=== PATIENT | male | born 1940 | race Caucasian/White ===

== ENCOUNTER 2020-09-23 12:31 | Inpatient (IN) | payer MEDICARE, BC ==
[~2020-09-23] VITALS: Ht 188 cm; Wt 69.4 kg
[2020-09-23] VITALS (13 sets, daily range): BP systolic 91–126; BP diastolic 48–74; BMI 21.8
[2020-09-23] MEDS ORDERED: OMEPRAZOLE20 M1 PO (13:29)
[2020-09-23] MEDS ORDERED: LISINOPRIL2.5 MG PO (13:29)
[2020-09-23] MEDS ORDERED: PROSCAR5 MG PO (13:30)
[2020-09-23] MEDS ORDERED: CELEXA10 MG PO (13:30)
[2020-09-23 13:44] LABS: BASOPHILS 0.3 % (0-2); EOSINOPHILS 0.3 % (0-7); HEMATOCRIT 51.7 % (42.0-54.0); HEMOGLOBIN 17.8 g/dL (13.5-17.5); IMMATURE GRANULOCYTES 0.2 % (0-5); LYMPHOCYTE ABS# 0.96 10x3/uL (1.32-3.57); LYMPHOCYTES 9.9 % (15-50); MCH 31.7 pg (26.0-34.0); MCHC 34.4 g/dL (31.0-37.0); MEAN PLATELET VOLUME 9.5 fL (7.4-10.4); MONOCYTES 8.5 % (2-11); NEUTROPHIL ABS# 7.85 10x3/uL (1.78-5.38); NEUTROPHILS 80.8 % (40-80); PLATELET COUNT 159 10x3/uL (130-400); RBC 5.62 10x6/uL (4.20-6.10); RDW 13.8 % (11.5-14.5); WBC 9.7 10x3/uL (4.8-10.8)
[2020-09-23 13:58] LABS: CALC OSMOLALITY 271 mosm/kg (275-300); CALCIUM 9.6 mg/dL (8.5-10.1); CARBON DIOXIDE 22.1 mmol/L (21.0-32.0); CHLORIDE - SERUM 98 mmol/L (98-107); GLUCOSE 133 mg/dL (74-106); POTASSIUM - SERUM 4.4 mmol/L (3.5-5.1); SODIUM 135 mmol/L (136-145); UREA NITROGEN 12 mg/dL (7-18); eGFR NON AFRICAN AMERICAN 76 mL/min (90-120)
--- NOTE | 2020-09-23 14:03 | NUR ---
PT TO CT WILL STATR MEDS UPON RETURN
--- NOTE | 2020-09-23 14:13 | NUR ---
PT RETURNED FROM CT AND FIXING TO GIVE MEDS PER MAR
[2020-09-23 14:14] LABS: APTT 30.8 SECONDS (22.8-39.4); INR 1.14 (0.85-1.17); PROTIME 13.6 SECONDS (11.6-15.0)
[2020-09-23 14:15] LABS: ALBUMIN 3.7 g/dL (3.4-5.0); ALKALINE PHOSPHATASE 103 U/L (30-120); ALT (SGPT) 24 U/L (10-68); BILIRUBIN - TOTAL 0.91 mg/dL (0.2-1.3); CKMB 0.5 U/L (0.0-3.6); CREATINE KINASE 64 UL (21-232); D-DIMER-QUANTITATIVE 1.41 ug/mLFEU (0.20-0.54); MAGNESIUM - SERUM 1.9 mg/dL (1.8-2.4); PROTEIN - SERUM 7.8 g/dL (6.4-8.2)
[2020-09-23 14:16] LABS: TROPONIN-I < 0.017 ng/mL (0.000-0.060)
[2020-09-23 19:50] LABS: CKMB 1.1 U/L (0.0-3.6); CREATINE KINASE 47 UL (21-232)
[2020-09-23 19:59] LABS: TROPONIN-I < 0.017 ng/mL (0.000-0.060)
--- NOTE | 2020-09-23 19:59 | NUR ---
SERIAL EKG DONE ORDERED. HR DECREASED TO 58-60 PRIOR TO. WEANED CARDIZEM TO OFF WHILE IN ROOM FROM 10 TO 5 TO 2 TO OFF HR REMAINS 60. PT STATES FEELS BETTER. WILL CONT TO MONITOR.
--- NOTE | 2020-09-23 22:57 | NUR ---
PT REMAINS SR 58-60 SINCE TURNING OFF CARDIZEM. PT DENIES C/O. RESTING QUIETLY.
[2020-09-24] VITALS (16 sets, daily range): BP systolic 88–100; BP diastolic 48–57; Ht 188 cm; Wt 69.4 kg
[2020-09-24 02:24] LABS: CKMB 0.6 U/L (0.0-3.6); CREATINE KINASE 58 UL (21-232)
[2020-09-24 02:29] LABS: TROPONIN-I < 0.017 ng/mL (0.000-0.060)
[2020-09-24 07:52] LABS: BASOPHILS 0.2 % (0-2); EOSINOPHILS 0.5 % (0-7); HEMATOCRIT 43.7 % (42.0-54.0); HEMOGLOBIN 14.5 g/dL (13.5-17.5); IMMATURE GRANULOCYTES 0.2 % (0-5); LYMPHOCYTE ABS# 1.06 10x3/uL (1.32-3.57); LYMPHOCYTES 18.4 % (15-50); MCH 31.4 pg (26.0-34.0); MCHC 33.2 g/dL (31.0-37.0); MEAN PLATELET VOLUME 9.2 fL (7.4-10.4); MONOCYTES 12.7 % (2-11); NEUTROPHIL ABS# 3.92 10x3/uL (1.78-5.38); PLATELET COUNT 138 10x3/uL (130-400); RBC 4.62 10x6/uL (4.20-6.10); RDW 14.4 % (11.5-14.5)
[2020-09-24 07:58] LABS: MCV 94.6 fL (80.0-100.0); WBC 5.8 10x3/uL (4.8-10.8)
[2020-09-24 08:07] LABS: INR 1.28 (0.85-1.17); PROTIME 14.8 SECONDS (11.6-15.0)
[2020-09-24 08:33] LABS: ALKALINE PHOSPHATASE 74 U/L (30-120); CALC OSMOLALITY 270 mosm/kg (275-300); CALCIUM 8.1 mg/dL (8.5-10.1); CARBON DIOXIDE 27.1 mmol/L (21.0-32.0); CHLORIDE - SERUM 104 mmol/L (98-107); CKMB 0.6 U/L (0.0-3.6); CREATINE KINASE 64 UL (21-232); GLUCOSE 103 mg/dL (74-106); MAGNESIUM - SERUM 1.7 mg/dL (1.8-2.4); PHOSPHOROUS 2.6 mg/dL (2.5-4.9); POTASSIUM - SERUM 3.9 mmol/L (3.5-5.1); PROTEIN - SERUM 5.9 g/dL (6.4-8.2); SODIUM 136 mmol/L (136-145); TROPONIN-I < 0.017 ng/mL (0.000-0.060); UREA NITROGEN 10 mg/dL (7-18); eGFR NON AFRICAN AMERICAN 76 mL/min (90-120)
[2020-09-24 08:34] LABS: ALBUMIN 2.7 g/dL (3.4-5.0); ALT (SGPT) 17 U/L (10-68)
--- NOTE | 2020-09-24 18:11 | NUR ---
RECEIVED PATIENT FROM ICU, PATIENT IS ALERT AND ORIENTED. PLAN OF CARE REVIEWED AND ASSESSMENT HAS BEEN COMPLETED. PATIENT AMBULATES WELL FROM THE CHAIR TO BED. PATIENT URINATES SOON HE ARRIVES. IN ROOM. NO NEEDS. CALL LIGHT IN REACH
--- NOTE | 2020-09-24 19:00 | NUR ---
pt sitting up in bed, awake alert, NIKOLSKI friend/family at bedside. pt reports gas/belching and indigestion. no other issues reported at this time. no acute distress. will contnue to monitor
--- NOTE | 2020-09-24 19:30 | NUR ---
new order received for carafate and mylanta X1, order to change zofran to q 4 hr prn.
[2020-09-25 01:35] VITALS: BP 103/52
[2020-09-25 05:57] VITALS: BP 107/56
[2020-09-25 06:13] LABS: BASOPHILS 0.2 % (0-2); EOSINOPHILS 3.3 % (0-7); HEMATOCRIT 41.3 % (42.0-54.0); HEMOGLOBIN 13.6 g/dL (13.5-17.5); IMMATURE GRANULOCYTES 0.2 % (0-5); LYMPHOCYTE ABS# 1.06 10x3/uL (1.32-3.57); LYMPHOCYTES 21.5 % (15-50); MCH 31.3 pg (26.0-34.0); MCHC 32.9 g/dL (31.0-37.0); MCV 94.9 fL (80.0-100.0); MEAN PLATELET VOLUME 9.3 fL (7.4-10.4); MONOCYTES 8.1 % (2-11); NEUTROPHIL ABS# 3.28 10x3/uL (1.78-5.38); NEUTROPHILS 66.7 % (40-80); PLATELET COUNT 119 10x3/uL (130-400); RBC 4.35 10x6/uL (4.20-6.10); RDW 14.2 % (11.5-14.5); WBC 4.9 10x3/uL (4.8-10.8)
[2020-09-25 06:26] LABS: INR 1.23 (0.85-1.17); PROTIME 14.4 SECONDS (11.6-15.0)
[2020-09-25 06:27] LABS: APTT 32.5 SECONDS (22.8-39.4)
[2020-09-25 06:31] LABS: ALBUMIN 2.6 g/dL (3.4-5.0); ALKALINE PHOSPHATASE 71 U/L (30-120); ALT (SGPT) 20 U/L (10-68); BILIRUBIN - TOTAL 0.79 mg/dL (0.2-1.3); CALC OSMOLALITY 273 mosm/kg (275-300); CALCIUM 8.6 mg/dL (8.5-10.1); CARBON DIOXIDE 26.6 mmol/L (21.0-32.0); CHLORIDE - SERUM 105 mmol/L (98-107); GLUCOSE 91 mg/dL (74-106); MAGNESIUM - SERUM 1.7 mg/dL (1.8-2.4); POTASSIUM - SERUM 3.9 mmol/L (3.5-5.1); PROTEIN - SERUM 5.7 g/dL (6.4-8.2); SODIUM 137 mmol/L (136-145); UREA NITROGEN 12 mg/dL (7-18); eGFR NON AFRICAN AMERICAN 76 mL/min (90-120)
[2020-09-25 06:32] LABS: PHOSPHOROUS 1.9 mg/dL (2.5-4.9)
--- NOTE | 2020-09-25 07:00 | NUR ---
PT LYING IN BED WITH EYES CLOSED. RAISES TO TACTILE STIMULI. PT [place]. RESP EVEN AND UNLABORED. AAOX4. DENIES NEEDS AT THIS TIME. ASSESSMENT COMPLETED. CLIR. BED IN LOWEST POSITION. SIDE RAILS X2. FAMILY MEMBER AT BEDSIDE
[2020-09-25 08:00] VITALS: BP 115/53
--- NOTE | 2020-09-25 12:01 | NUR ---
I have reviewed this patient and I concur with the Shift Assessment completed by the Licensed Practical Nurse today this shift.
--- NOTE | 2020-09-25 12:14 | CN ---
PATIENT NAME:EMMY PENNINGTON MEDICAL RECORD: [id number] : 36 [facility] AD[facility] DATE: 09/23/20 ACCOUNT: [id number] CONSULTING PHYSICIAN: CHRISTA AGUSTIN MD REFERRING PHYSICIAN: CHRISTA PETERSEN MD DATE OF CONSULTATION: 09/24/2020 HISTORY OF PRESENT ILLNESS: An 80-year-old gentleman, actually fairly healthy by all reports, is able to mow his own yard, admitted to CV/ICU with atrial fibrillation and RVR, increased lactic acid, found to have possible multilobar pneumonitis on chest x-ray, negative for PE. Does drink fairly heavily on a regular basis. Currently, reverted to sinus rhythm. We are asked to see him concerning his cardiovascular status. PAST MEDICAL HISTORY: Includes; 1. History of hypertension. 2. Hyperlipidemia. 3. Gastroesophageal reflux disease. MEDICATIONS: Typically include lisinopril 2.5 every day, Celexa 10 every day, omeprazole 20 mg p.o. every day, Proscar 5 mg p.o. every day. ALLERGIES: CODEINE. SOCIAL HISTORY: Nonsmoker, at least moderate drinker, although probably more than his reports. Easily able to take care of all his ADLs including outdoor work. REVIEW OF SYSTEMS: The patient reports easy bruising but reports no swollen glands. The patient reports no fever, no night sweats, no significant weight gain, no significant weight loss. No significant exercise tolerance. The patient reports no dry eyes, no irritation, no vision change. Patient reports no difficulty hearing and no ear pain. Patient reports no frequent nose bleeds or nose and sinus problems. Patient reports on arm pain on exertion. No shortness of breath while lying down. No history of heart murmur. Patient reports no cough, no wheezing or coughing up blood. Patient reports no abdominal pain, no vomiting. Normal appetite. No diarrhea and not vomiting blood. No nausea and no constipation. Patient reports no incontinence. No difficulty urinating. No hematuria. No increased frequency. Patient reports no muscle aches. No weakness, no arthralgias, no back pain. No swelling of the extremities. Patient reports no abnormal mole, no jaundice, no rashes. Reports no loss of consciousness. No weakness and no numbness. No seizures, dizziness, or headaches. The patient reports no depression, no sleep disturbance, feeling safe in a relationship and no alcohol abuse. Patient reports on fatigue. Reports no runny nose or sinus pressure. No itching, no hives, and no frequent sneezing. PHYSICAL EXAMINATION: GENERAL: Pleasant, no acute distress, appears stated age. VITAL SIGNS: Blood pressure 92/48, pulse 55 and regular. HEENT: Normocephalic, atraumatic. NECK: No bruits noted. HEART: Regular, II/ systolic ejection murmur. I do not hear a gallop. LUNGS: Good air excursion. ABDOMEN: Soft, nontender. CONSULT REPORT [id number] EMMY PENNINGTON EXTREMITIES: Pulses 2+ and equal. No edema. NEUROLOGIC: Grossly intact. DIAGNOSTIC DATA: EKG currently shows normal sinus rhythm. IMPRESSION AND PLAN: Atrial fibrillation, suspect combination of both heart and respiratory issues. He is in sinus rhythm currently. Pressures run in the 100-90 range. We will try something such as amiodarone, which should have no negative effect on the blood pressure at this point. Check echocardiography study for structural integrity of the left ventricular. Further recommendations based on clinical course. Thank you for the consultation. TRANSINT:[id number] Voice Confirmation ID: [id number] DOCUMENT ID: [id number] CHRISTA AGUSTIN MD at 1214 CC: [id number] DICTATION DATE: 09/24/20 1251 CLEANER TOUCH UP WORKER: 09/24/[address] [facility] [address] [place] [address]
--- NOTE | 2020-09-25 12:15 | EC ---
PATIENT:EMMY PENNINGTON DATE OF SERVICE: 09/23/20 SEX: M MEDICAL RECORD: [id number] DATE OF : 38 LOCATION:D.M2 D.210 AGE OF PATIENT: 80 ADMISSION DATE: 09/23/20 REFERRING PHYSICIAN: INTERPRETING PHYSICIAN: CHRISTA AGUSTIN MD ECHOCARDIOGRAM REPORT ECHO CHARGES 4 ECHO COMPLETE Date: 09/24/20 CLINICAL DIAGNOSIS: AFIB ECHOCARDIOGRAPHIC MEASUREMENTS (adult normal given) AC root (d.<3.7cm) 4.3 cm LV Septum d (<1.2 cm> 0.7 cm Valve Excursion 1.6 cm LV Septum (systole) 1.2 cm Left Atria (s.<4.0cm> 3.4 cm LVPW d(<1.2cm) 0.7 cm RV (d.<2.3cm) 2.8 cm LVPW (sytole) 1.1 cm LV diastole(<5.6CM) 5.5 cm MV E-F(>70mm/sec) cm LV systole 4.1 cm LVOT Diameter 2.1 cm MV exc.(>10mm) 1.8 cm Est.ejection fraction (50-75%) % DOPPLER: LVIT cm/sec A 58 cm/sec E 72 cm/sec LA cm/sec RVSP 32 mmHg LVOT 92 cm/sec AOP1/2T m/s Asc. Ao 112 cm/sec RVOT 48 cm/sec RA cm/sec PA 68 cm/sec AV Gradient Peak 5.0 mmHg AV Mean 3.0 mmHg AV Area 3.1 cm MV Gradient Peak 2.4 mmHg MV Mean 1.2 mmHg MV Area cm COMMENTS: Seismic Prospecting Observer: Ronda NUNN Endodontic Assistant: 3 Dr. Esquivel TAPE# Pericardial Effusion N DATE OF SERVICE: 09/23/2020 Adequate 2D, color flow imaging, spectral Doppler, and M-Mode. No LVH. LV internal dimensions are normal. Wall motion normal. EF greater than or equal to 55%. Aortic valve is tricuspid with good valve excursion. Mild AI. Left atrium is normal. Mitral valve shows no prolapse. Mild MR. Right-sided chambers are grossly normal. Trace TR. TRANSINT:[id number] Voice Confirmation ID: [id number] DOCUMENT ID: [id number] ECHOCARDIOGRAM REPORT [id number] EMMY PENNINGTON CHRISTA AGUSTIN MD at 1215 CC: [id number] DICTATION DATE: 09/24/20 1503 WILDLIFE CONSERVATION PROFESSOR: 09/24/20 2251 ADM IN [facility] [id number] [place] [address]
[2020-09-25 12:19] VITALS: BP 117/57
[2020-09-25 16:07] VITALS: BP 100/60
--- NOTE | 2020-09-25 19:13 | NUR ---
READ THROUGH NURSING ORDERS. PATIENT IS TO REMAIN ON TELEMETRY. NOTIFIED LENS ASSORTER. LENS ASSORTER IS LOOKING INTO IT.
--- NOTE | 2020-09-25 19:15 | NUR ---
RECEIVED BEDSIDE REPORT. PATIENT IS ALERT AND ORIENTED, RESTING COMFORTABLY IN BED. RESPIRATIONS ARE EVEN AND UNLABORED. NO S/S OF DISTRESS. NO C/O PAIN. NEEDS MET. CALL LIGHT WITHIN REACH. AT BEDSIDE.
[2020-09-25 20:21] VITALS: BP 117/60
[2020-09-26 01:37] VITALS: BP 132/93
[2020-09-26 04:49] VITALS: BP 108/64
[2020-09-26 05:51] LABS: BASOPHILS 0.4 % (0-2); EOSINOPHILS 5.5 % (0-7); HEMATOCRIT 41.9 % (42.0-54.0); HEMOGLOBIN 14.1 g/dL (13.5-17.5); LYMPHOCYTE ABS# 1.09 10x3/uL (1.32-3.57); LYMPHOCYTES 20.7 % (15-50); MCH 31.9 pg (26.0-34.0); MCHC 33.7 g/dL (31.0-37.0); MCV 94.8 fL (80.0-100.0); MEAN PLATELET VOLUME 9.9 fL (7.4-10.4); MONOCYTES 7.4 % (2-11); NEUTROPHIL ABS# 3.48 10x3/uL (1.78-5.38); PLATELET COUNT 121 10x3/uL (130-400); RBC 4.42 10x6/uL (4.20-6.10); RDW 14.2 % (11.5-14.5); WBC 5.3 10x3/uL (4.8-10.8)
[2020-09-26 06:08] LABS: APTT 32.7 SECONDS (22.8-39.4); INR 1.23 (0.85-1.17); PROTIME 14.3 SECONDS (11.6-15.0)
[2020-09-26 06:17] LABS: ALBUMIN 2.7 g/dL (3.4-5.0); ALKALINE PHOSPHATASE 73 U/L (30-120); ALT (SGPT) 21 U/L (10-68); BILIRUBIN - TOTAL 0.63 mg/dL (0.2-1.3); CALC OSMOLALITY 275 mosm/kg (275-300); CALCIUM 8.5 mg/dL (8.5-10.1); CARBON DIOXIDE 27.3 mmol/L (21.0-32.0); CHLORIDE - SERUM 105 mmol/L (98-107); CREATININE - SERUM 0.9 mg/dL (0.6-1.3); GLUCOSE 87 mg/dL (74-106); MAGNESIUM - SERUM 1.7 mg/dL (1.8-2.4); POTASSIUM - SERUM 3.5 mmol/L (3.5-5.1); PROTEIN - SERUM 5.7 g/dL (6.4-8.2); SODIUM 139 mmol/L (136-145); UREA NITROGEN 10 mg/dL (7-18); eGFR NON AFRICAN AMERICAN 86 mL/min (90-120)
[2020-09-26 08:00] VITALS: BP 114/58
--- NOTE | 2020-09-26 10:49 | NUR ---
Nutrition Reassessment/Follow-up: Eating well and drinking Ensure; observed majority of breakfast eaten this AM. Diet: Cardiac, Ensure TID No new wt; last wt: 153# (09/24) Last BM: 09/25 Labs noted: Mg 1.7 Meds noted: Protonix, MVI, NS @ 75, electrolyte protocol Nutrition Goals: -PO intake >=75% avg meal intake. -Stable wt. Nutrition Intervention: -Nutrition needs unchanged since initial assessment; no new wt available. -Need new wt. -RD will follow up within 7 days if pt still admitted.
[2020-09-26] MEDS ORDERED: AMIODARONE HCL200 MG PO (10:51)
[2020-09-26] MEDS ORDERED: MULTI-DAY VITAM1 TAB PO (10:52)
[2020-09-26] MEDS ORDERED: MUCINEX600 MG PO (10:52)
[2020-09-26] MEDS ORDERED: TESSALON PERLE100 MG PO (10:52)
[2020-09-26] MEDS ORDERED: VIBRAMYCIN 100100 MG PO (10:53)
[2020-09-26] MEDS ORDERED: OMNICEF300 MG PO (10:53)
[2020-09-26] MEDS ORDERED: LIBRIUM25 MG PO (10:53)
--- NOTE | 2020-09-26 13:30 | NUR ---
NURSE REVIEWS DC INSTRUCTIONS WITH PATIENT AND HIS SIGNIFICANT OTHER AT THIS TIME. PATIENT DENIES QUESTIONS OR CONCERNS. NURSE TO CALL IN PRESCRIPTIONS TO A DIFFERENT PHARMACY IN [facility].
--- NOTE | 2020-09-26 13:35 | NUR ---
NURSE CALLS IN PATIENT'S PRESCRIPTIONS TO [facility] IN [facility]
--- NOTE | 2020-09-26 13:43 | NUR ---
PATIENT BEING WHEELED OUT AT THIS TIME. PATIENT HAS BELONGINGS IN HAND. NAD NOTED.
--- NOTE | 2020-09-26 15:58 | MORECARE ---
CASE MANAGEMENT DISCHARGE SUMMARY PATIENT: EMMY PENNINGTON UNIT: [id number] ADM DATE: 09/23/20 AGE: 80 : 38 SEX: M ROOM/BED: D.2107 AUTHOR: IRMA,DOC PHYSICIAN: REFERRING PHYSICIAN: CHRISTA PETERSEN MD DATE OF SERVICE: 09/26/20 Case Management Discharge Planning Summary DCP REVIEW SUMMARY ANTICIPATED D/C DATE: 09/26/2020 EXPECTED LOS : 3 CASE STATUS: DCP Initiated INITIAL REVIEW: 09/23/2020 INITIAL REVIEWER: Avril Tatum FINAL DISCHARGE DISPOSITION: : FINAL REVIEWER: FINAL REVIEW DATE: DCP Focus Questions & Answers QUESTION: ANSWER : PATIENT: EMMY PENNINGTON ENCOUNTER: [id number] MEDICAL RECORD#: [id number] ADMISSION DATE: 09/23/2020 DISCHARGE DATE: 09/26/2020 ATTENDING MD: : AGE: 80 MARITAL STATUS: M DC PLAN ID: [id number] FACILITY: [facility] PRINTED ON: 09/26/20 15:58 CT All edits/amendments must be made on the electronic document DICTATION DATE: 09/26/201557 REVIEW CONSULTANT: DM 09/26/20 1558 RPT#: [id number] DC DATE:09/26/20 STATUS: DIS IN [facility] [address] [place] [address] END OF REPORT
--- NOTE | 2020-09-26 16:12 | MORECARE ---
CASE MANAGEMENT DISCHARGE SUMMARY PATIENT: EMMY PENNINGTON UNIT: [id number] ADM DATE: 09/23/20 AGE: 80 : 38 SEX: M ROOM/BED: D.2107 AUTHOR: IRMA,DOC PHYSICIAN: REFERRING PHYSICIAN: CHRISTA PETERSEN MD DATE OF SERVICE: 09/26/20 Case Management Discharge Planning Summary COMMENTS ENTERED DATE: 09/26/20 16:03 CT COMMENT TYPE: Discharge Planning REVIEWER: Avril Tatum CM MET WITH PATIENT AND SIGNIFICANT OTHER KEATON KLEIN [phone], OBTAINED CONSENT FROM PATIENT TO DISCUSS DISCHARGE. PATIENT STATES THAT HE LIVES INDEPENDENTLY AY HOME WITH ROOM MATE. STATES THAT THE HOME ENVIRONMENT IS SAFE WITH RUNNING WATER, ELECTRICITY, AND GAS. TRANSPORTATION HOME WILL BE PROVIDED BY SO, BUT OTHERWISE PT DRIVES SELF TO ALL APPOINTMENTS. PT STATES HE WILL NOT DRIVE FOR A FEW DAYS, BUT CAN OBTAIN MEDCIATIONS OR OTHER NEEDS VIA HIS ROOM MATTE, SO, OR CHILDREN. PT USSES [facility] AND HIS PCP IS ROSENDA DE LA ROSA. PT DENIES NEED FOR ADDITIONAL SERVICES FROM HOME HEALTH, REHAB, OR DME. PT SIGNED DAVID REFUSAL AND IMM SERVED AND COPY SIGNED AND PLACED IN CHART. PT VERBALIZED UNDERSTANDING AND IS READY TO DISCHARGE TODAY. DCP REVIEW SUMMARY ANTICIPATED D/C DATE: 09/26/2020 EXPECTED LOS : 3 CASE STATUS: DCP Initiated INITIAL REVIEW: 09/23/2020 INITIAL REVIEWER: Avril Tatum FINAL DISCHARGE DISPOSITION: : FINAL REVIEWER: FINAL REVIEW DATE: DCP Focus Questions & Answers DCP Screen QUESTION: ANSWER High Risk Factors: : None Walking limitation: Patient stated self rated walking limitation present? : No Age: : 78 + Prior living environment: : Lives with others Disability ranking: : Grade 1: No significant disability DCP Evaluation QUESTION: ANSWER Patient and/or caregiver agree upon recommended discharge plan? : Yes Family / Caregiver's ability to cope with chronic illness: : a. Adequate (ability to meet patient's medical needs, ensures patient attends medical appts.) Patient's current cognitive status: : *Oriented to person, place, situation, time and present Patient's ability to cope with chronic illness : d. No chronic illness Patient gives permission to discuss discharge plans with: (name, relationship and number) : KEATON ERNIE ([place]) [phone] Does the patient have the ability to pay for or attain post discharge needs / services? : N/A Functional screen assessment: : No issues identified Family / Caregiver's ability to cope with chronic illness: : a. Adequate (ability to meet patient's medical needs, ensures patient attends medical appts.) Physical Status: : Independent with ADL's Equipment needed for post hospitalization: : None Is there a likelihood that the patient will require additional services to return to the preadmission environment? : N/A Living Arrangements: : Home with others Results of this evaluation have been discussed with: : Patient Patient with capacity for self-care or can be cared for in same environment as prior to hospitalization? : Yes Baseline cognitive status: : *Oriented to person, place, situation, time and present Physical environment modification needed / anticipated for discharge: : No Medication Management: : Patient states they do have transportation to picker feeder medications Medication Management: : Patient states can afford medications Planned post hospital services available for patient? : N/A Pharmacy name(s): : [facility] IN [place] Planned post hospital services covered by insurance plan? : N/A Does Patient have transportation to get home and to follow-up medical appointments when discharged from the hospital? : Yes Would patient like to participate in any Care Coordination programs (if applicable): : Not applicable Does the patient have electricity at home? : Yes Does the patient have running water in their house? : Yes Equipment in use: : None Mental health screen: : No mental health history Psychosocial status: : Independent adult (65+) Abuse/Neglect: : None Resources / Services in place: : None DCP Re-evaluation QUESTION: ANSWER Would patient like to participate in any Care Coordination programs (if applicable): : Not applicable PATIENT: EMMY PENNINGTON ENCOUNTER: [id number] MEDICAL RECORD#: [id number] ADMISSION DATE: 09/23/2020 DISCHARGE DATE: 09/26/2020 ATTENDING MD: DWIGHT: AGE: 80 MARITAL STATUS: M DC PLAN ID: [id number] FACILITY: [facility] PRINTED ON: 09/26/20 16:12 CT All edits/amendments must be made on the electronic document DICTATION DATE: 09/26/201611 LIDAR ANALYST: RAMIN 09/26/201611 RPT#: [id number] DC DATE:09/26/20 STATUS: DIS IN [facility] [address] [place] [address] END OF REPORT
--- NOTE | 2020-09-29 17:28 | MORECARE ---
CASE MANAGEMENT DISCHARGE SUMMARY PATIENT: EMMY PENNINGTON UNIT: [id number] ADM DATE: 09/23/20 AGE: 80 : 38 SEX: M ROOM/BED: D.2107 AUTHOR: IRMA,DOC PHYSICIAN: REFERRING PHYSICIAN: CHRISTA PETERSEN MD DATE OF SERVICE: 09/29/20 Case Management Discharge Planning Summary COMMENTS ENTERED DATE: 09/26/20 16:03 CT COMMENT TYPE: Discharge Planning REVIEWER: Avril Tatum CM MET WITH PATIENT AND SIGNIFICANT OTHER KEATON KLEIN [phone], OBTAINED CONSENT FROM PATIENT TO DISCUSS DISCHARGE. PATIENT STATES THAT HE LIVES INDEPENDENTLY AY HOME WITH ROOM MATE. STATES THAT THE HOME ENVIRONMENT IS SAFE WITH RUNNING WATER, ELECTRICITY, AND GAS. TRANSPORTATION HOME WILL BE PROVIDED BY SO, BUT OTHERWISE PT DRIVES SELF TO ALL APPOINTMENTS. PT STATES HE WILL NOT DRIVE FOR A FEW DAYS, BUT CAN OBTAIN MEDCIATIONS OR OTHER NEEDS VIA HIS ROOM MATTE, SO, OR CHILDREN. PT [facility] AND HIS PCP IS ROSENDA DE LA ROSA. PT DENIES NEED FOR ADDITIONAL SERVICES FROM HOME HEALTH, REHAB, OR DME. PT SIGNED DAVID REFUSAL AND IMM SERVED AND COPY SIGNED AND PLACED IN CHART. PT VERBALIZED UNDERSTANDING AND IS READY TO DISCHARGE TODAY. DCP REVIEW SUMMARY ANTICIPATED D/C DATE: 09/26/2020 EXPECTED LOS : 3 CASE STATUS: DCP Initiated INITIAL REVIEW: 09/23/2020 INITIAL REVIEWER: Avril Tatum FINAL DISCHARGE DISPOSITION: : FINAL REVIEWER: FINAL REVIEW DATE: DCP Focus Questions & Answers DCP Screen QUESTION: ANSWER High Risk Factors: : None Walking limitation: Patient stated self rated walking limitation present? : No Age: : 78 + Prior living environment: : Lives with others Disability ranking: : Grade 1: No significant disability DCP Evaluation QUESTION: ANSWER Patient gives permission to discuss discharge plans with: (name, relationship and number) : KEATON KLEIN ([place]) [phone] Patient's ability to cope with chronic illness : d. No chronic illness Patient's current cognitive status: : *Oriented to person, place, situation, time and present Family / Caregiver's ability to cope with chronic illness: : a. Adequate (ability to meet patient's medical needs, ensures patient attends medical appts.) Patient and/or caregiver agree upon recommended discharge plan? : Yes Physical Status: : Independent with ADL's Family / Caregiver's ability to cope with chronic illness: : a. Adequate (ability to meet patient's medical needs, ensures patient attends medical appts.) Functional screen assessment: : No issues identified Does the patient have the ability to pay for or attain post discharge needs / services? : N/A Living Arrangements: : Home with others Is there a likelihood that the patient will require additional services to return to the preadmission environment? : N/A Equipment needed for post hospitalization: : None Baseline cognitive status: : *Oriented to person, place, situation, time and present Patient with capacity for self-care or can be cared for in same environment as prior to hospitalization? : Yes Results of this evaluation have been discussed with: : Patient Physical environment modification needed / anticipated for discharge: : No Medication Management: : Patient states can afford medications Medication Management: : Patient states they do have transportation to pickle maker medications Pharmacy name(s): : [facility] IN [place] Planned post hospital services available for patient? : N/A Does Patient have transportation to get home and to follow-up medical appointments when discharged from the hospital? : Yes Planned post hospital services covered by insurance plan? : N/A Would patient like to participate in any Care Coordination programs (if applicable): : Not applicable Does the patient have electricity at home? : Yes Does the patient have running water in their house? : Yes Equipment in use: : None Mental health screen: : No mental health history Psychosocial status: : Independent adult (65+) Abuse/Neglect: : None Resources / Services in place: : None DCP Re-evaluation QUESTION: ANSWER Would patient like to participate in any Care Coordination programs (if applicable): : Not applicable PATIENT: EMMY PENNINGTON ENCOUNTER: [id number] MEDICAL RECORD#: [id number] ADMISSION DATE: 09/23/2020 DISCHARGE DATE: 09/26/2020 ATTENDING MD: WDIGHT: AGE: 80 MARITAL STATUS: M DC PLAN ID: [id number] FACILITY: [facility] PRINTED ON: 09/29/20 17:28 CT All edits/amendments must be made on the electronic document DICTATION DATE: 09/29/201727 SUPERVISOR WRAPPING ROOM: RAMIN 09/29/201727 RPT#: [id number] DC DATE:09/26/20 STATUS: DIS IN [facility] [address] [place] [address] END OF REPORT
== END 2020-09-26 13:46 | disposition home or self-care (01) | DRG 308 ==
LOC: D.ER 12:31 → D.CVICU 15:47 → D.M2 15:47
PROVIDERS: Family Medicine; ADMIT Family Medicine; ATTEND Family Medicine
DX: I48.91 Unspecified atrial fibrillation (principal); J18.9 Pneumonia, unspecified organism; E87.1 Hypo-osmolality and hyponatremia; H93.13 Tinnitus, bilateral; R73.9 Hyperglycemia, unspecified; Z72.89 Other problems related to lifestyle; I10 Essential (primary) hypertension; K21.9 Gastro-esophageal reflux disease without esophagitis; N40.0 Benign prostatic hyperplasia without lower urinary tract symptoms; E78.5 Hyperlipidemia, unspecified; E83.42 Hypomagnesemia; E88.09 Other disorders of plasma-protein metabolism, not elsewhere classified; I95.9 Hypotension, unspecified

== ENCOUNTER 2020-10-02 10:38 | Inpatient (IN) | payer MEDICARE, BC ==
[~2020-10-02] VITALS: Ht 188 cm; Wt 84.4 kg
[~2020-10-02 10:38] MED LIST: AMIODARONE HCL200 MG PO; CELEXA10 MG PO; LIBRIUM25 MG PO; LISINOPRIL2.5 MG PO; MUCINEX600 MG PO; MULTI-DAY VITAM1 TAB PO; OMEPRAZOLE20 M1 PO; OMNICEF300 MG PO; PROSCAR5 MG PO; TESSALON PERLE100 MG PO; VIBRAMYCIN 100100 MG PO
[2020-10-02 11:14] LABS: BASOPHILS 0.3 % (0-2); EOSINOPHILS 0.3 % (0-7); HEMATOCRIT 50.5 % (42.0-54.0); LYMPHOCYTES 10.3 % (15-50); MCH 31.4 pg (26.0-34.0); MCHC 33.7 g/dL (31.0-37.0); MEAN PLATELET VOLUME 7.2 fL (7.4-10.4); MONOCYTES 12.4 % (2-11); NEUTROPHILS 76.7 % (40-80); RBC 5.43 10x6/uL (4.20-6.10); RDW 14.6 % (11.5-14.5); WBC 8.1 10x3/uL (4.8-10.8)
[2020-10-02 11:28] LABS: APTT 31.7 SECONDS (22.8-39.4); CALC OSMOLALITY 265 mosm/kg (275-300); CALCIUM 9.5 mg/dL (8.5-10.1); CARBON DIOXIDE 25.3 mmol/L (21.0-32.0); CHLORIDE - SERUM 99 mmol/L (98-107); CREATININE - SERUM 1.2 mg/dL (0.6-1.3); GLUCOSE 104 mg/dL (74-106); INR 1.29 (0.85-1.17); POTASSIUM - SERUM 3.9 mmol/L (3.5-5.1); PROTIME 14.9 SECONDS (11.6-15.0); SODIUM 133 mmol/L (136-145); UREA NITROGEN 13 mg/dL (7-18); eGFR NON AFRICAN AMERICAN 61 mL/min (90-120)
[2020-10-02 11:35] LABS: PLATELET COUNT 205 10x3/uL (130-400)
[2020-10-02 11:54] LABS: ALBUMIN 3.6 g/dL (3.4-5.0); ALKALINE PHOSPHATASE 81 U/L (30-120); ALT (SGPT) 35 U/L (10-68); BILIRUBIN - TOTAL 0.85 mg/dL (0.2-1.3); CKMB 0.8 U/L (0.0-3.6); CREATINE KINASE 134 UL (21-232); PROTEIN - SERUM 7.9 g/dL (6.4-8.2); TROPONIN-I < 0.017 ng/mL (0.000-0.060)
[2020-10-02 14:59] VITALS: BP 131/70
[2020-10-02 16:08] VITALS: BP 104/56; BP 124/77
--- NOTE | 2020-10-02 19:00 | NUR ---
PT FROM ER, PT IN BED, AAO X 4, FAMILY AT BEDSIDE, RESP EVEN AND UNLABORED, NO DISTRESS NOTED, CL IN REACH, SR UP X 2.
[2020-10-02 20:35] LABS: BILIRUBIN NEGATIVE (NEGATIVE); KETONE NEGATIVE (NEGATIVE); NITRITE NEGATIVE (NEGATIVE); UROBILINOGEN NORMAL mg/dL (< 2)
[2020-10-02 21:00] VITALS: BP 104/52
[2020-10-03] VITALS: BP 101/59
[2020-10-03 04:00] VITALS: BP 115/58
--- NOTE | 2020-10-03 04:09 | NUR ---
I have reviewed this patient and I concur with the Shift Assessment completed by the Licensed Practical Nurse today this shift.
[2020-10-03 06:27] LABS: APTT 30.1 SECONDS (22.8-39.4); BASOPHILS 0.7 % (0-2); EOSINOPHILS 2.5 % (0-7); HEMATOCRIT 44.7 % (42.0-54.0); HEMOGLOBIN 15.3 g/dL (13.5-17.5); INR 1.27 (0.85-1.17); LYMPHOCYTES 17.1 % (15-50); MCH 31.7 pg (26.0-34.0); MCHC 34.2 g/dL (31.0-37.0); MCV 92.9 fL (80.0-100.0); MEAN PLATELET VOLUME 7.7 fL (7.4-10.4); MONOCYTES 16.2 % (2-11); NEUTROPHILS 63.5 % (40-80); PLATELET COUNT 213 10x3/uL (130-400); PROTIME 14.7 SECONDS (11.6-15.0); RBC 4.81 10x6/uL (4.20-6.10); RDW 14.5 % (11.5-14.5); WBC 6.5 10x3/uL (4.8-10.8)
[2020-10-03 06:44] LABS: ALKALINE PHOSPHATASE 66 U/L (30-120); ALT (SGPT) 34 U/L (10-68); BILIRUBIN - TOTAL 0.51 mg/dL (0.2-1.3); CALC OSMOLALITY 268 mosm/kg (275-300); CALCIUM 9.1 mg/dL (8.5-10.1); CARBON DIOXIDE 25.4 mmol/L (21.0-32.0); CHLORIDE - SERUM 102 mmol/L (98-107); GLUCOSE 83 mg/dL (74-106); MAGNESIUM - SERUM 2.1 mg/dL (1.8-2.4); POTASSIUM - SERUM 4.2 mmol/L (3.5-5.1); PROTEIN - SERUM 6.6 g/dL (6.4-8.2); SODIUM 135 mmol/L (136-145); THYROID STIMULATING HORMONE 4.77 uIU/mL (0.36-3.74); UREA NITROGEN 13 mg/dL (7-18); eGFR NON AFRICAN AMERICAN 76 mL/min (90-120)
[2020-10-03 06:45] LABS: TROPONIN-I < 0.017 ng/mL (0.000-0.060)
--- NOTE | 2020-10-03 07:10 | NUR ---
Sitting up in bed, awake/alert/oriented, T/R self ad mitzi, cont of B/B with use of urinal/bedpan ad mitzi, pericare provided during daily bath and PRN, denies pain/other discomfort at this time, call light/phone/water within reach, no s/s of acute distress observed.
[2020-10-03 08:40] VITALS: BP 102/49
[2020-10-03 11:31] VITALS: BMI 23.9
--- NOTE | 2020-10-03 11:32 | NUR ---
REHAB PRESCREEN RECEIVED. PATIENT HAS NOT RECEIVED HIS PHYSICAL THERAPY OR OCCUPATIONAL THERAPY EVALUATIONS YET. WE WILL LOOK BACK AT THIS CHART LATER TODAY TO SEE IF THEY HAVE BEEN DONE. THANK YOU FOR THIS REFERRAL. NIMESH JACKSON RN CLINICAL LIAISON, INPATIENT REHAB.
[2020-10-03 11:40] VITALS: BP 94/68
[2020-10-03 16:03] VITALS: BP 118/52
--- NOTE | 2020-10-03 19:30 | NUR ---
PT IN BED, AAO X 4, RESP EVEN AND UNLABORED, NO DISTRESS NOTED, CL IN REACH, SR UP X 2.
[2020-10-03 23:18] VITALS: BP 124/68
--- NOTE | 2020-10-04 01:53 | NUR ---
I have reviewed this patient and I concur with the Shift Assessment completed by the Licensed Practical Nurse today this shift.
[2020-10-04 05:18] VITALS: BP 100/58
[2020-10-04 06:09] LABS: BASOPHILS 0.7 % (0-2); EOSINOPHILS 2.2 % (0-7); HEMATOCRIT 44.9 % (42.0-54.0); HEMOGLOBIN 15.4 g/dL (13.5-17.5); LYMPHOCYTES 18.6 % (15-50); MCH 31.7 pg (26.0-34.0); MCHC 34.3 g/dL (31.0-37.0); MCV 92.5 fL (80.0-100.0); MEAN PLATELET VOLUME 7.6 fL (7.4-10.4); MONOCYTES 14.6 % (2-11); NEUTROPHILS 63.9 % (40-80); PLATELET COUNT 230 10x3/uL (130-400); RBC 4.85 10x6/uL (4.20-6.10); RDW 14.2 % (11.5-14.5); WBC 6.4 10x3/uL (4.8-10.8)
[2020-10-04 06:51] LABS: ALBUMIN 3.1 g/dL (3.4-5.0); ALKALINE PHOSPHATASE 66 U/L (30-120); ALT (SGPT) 32 U/L (10-68); BILIRUBIN - TOTAL 0.57 mg/dL (0.2-1.3); CALC OSMOLALITY 263 mosm/kg (275-300); CALCIUM 9.2 mg/dL (8.5-10.1); CARBON DIOXIDE 24.6 mmol/L (21.0-32.0); CHLORIDE - SERUM 98 mmol/L (98-107); GLUCOSE 99 mg/dL (74-106); POTASSIUM - SERUM 3.9 mmol/L (3.5-5.1); PROTEIN - SERUM 6.9 g/dL (6.4-8.2); SODIUM 131 mmol/L (136-145); UREA NITROGEN 15 mg/dL (7-18); eGFR NON AFRICAN AMERICAN 76 mL/min (90-120)
--- NOTE | 2020-10-04 07:30 | NUR ---
Lying in bed, awake/alert/oriented with intermittent confusion, T/R self ad mitzi, cont of B/B with BRPs per self ad mitzi, denies pain/other discomfort at this time, no s/s of acute distress observed.
[2020-10-04 07:49] VITALS: BP 119/63
--- NOTE | 2020-10-04 10:34 | NUR ---
REHAB PRESCREENING Rehab referral received and chart reviewed. Mr. Doty is a good candidate for acute inpatient rehab. I will begin his electronic screen and he can admit to rehab when approvals are in place and his physicians feel he is appropriate for discharge. Thank you for this referral! Mary Alice Cantrell, ASSISTANT INFANT TEACHER Rehab PD
[2020-10-04] MEDS ORDERED: AMIODARONE HCL200 MG PO (10:55)
--- NOTE | 2020-10-04 11:30 | NUR ---
Found on floor between bathroom and bed, pt stated "I didn't fall, I sat down and tried to crawl to get the call button", denies any pain/injury, VS 98.0, 18, 95%, 84, 122/66, Lt elbow with ST, Lt hip red, pt able to move all extremities, treatment for skin tear is to apply bactroban ointment and cover with sm meplex dsg, Dr. Cevallos called to room, examined pt with this nurse then provided orders for xrays, pt awake/alert/oriented and able to move all extremities, placed maru bed alarm on him and reiterqated to him to use the call light and wait for staff to assist before getting up, pt agreed.
--- NOTE | 2020-10-04 11:51 | NUR ---
THANK YOU FOR THIS REFERRAL. ELECTRONIC SCREEN IN PROGRESS. PATIENT IS EAGER TO PARTICIPATE IN ACUTE REHABILITATION. IDT TEAM MEMBERS NOTIFIED IN MORNING MEETING.-LAMONTE MCKEON LPN, CLINICAL LIAISON
[2020-10-04 12:25] VITALS: BP 110/72
--- NOTE | 2020-10-04 13:00 | NUR ---
Called report to FLOR[facility] Adams in Rehab unit, waiting for xrays to be done and read, followed up with a call to xray where I spoke with Melissa, explained the need to complete in a timely fashion so Mr. Doty can be transferred.
--- NOTE | 2020-10-04 14:40 | NUR ---
X-ray results inconclusive on Lt. hip, called [facility] Dumont who states get CT that was recommended by radiology, no s/s of fracture on Lt elbow.
--- NOTE | 2020-10-04 14:45 | NUR ---
Called CT, spoke with Carly who states will do JAMILA.
--- NOTE | 2020-10-04 14:55 | NUR ---
Off unit for CT.
--- NOTE | 2020-10-04 15:15 | NUR ---
CT results in, shows a fx of head/neck of left femur, called [facility] Dumont, got order to consult orthopedics.
--- NOTE | 2020-10-04 15:45 | NUR ---
Orthopedic surgeon Dr. Howe notified.
--- NOTE | 2020-10-04 16:07 | NUR ---
OT NOTE: PT COMPLETED BED MOB WITH CGA-MIN A. PT COMPLETED SUPINE TO SIT WITH CGA. PT COMPLETED SIT TO STAND WITH CGA. PT REQUIRED MIN-MOD A FOR DOFF/NATHALY BRIEF. PT REQUIRED MIN-MOD A FOR HYGIENE. PT BACK IN BED...CL WITHIN REACH. [phone] RAFAEL TOPETE [place]
--- NOTE | 2020-10-04 16:45 | NUR ---
Dr. Howe came to see Mr. Doty and Mr. Doty refused surgical intervention, this nurse spoke with Mr. Doty about damage done to femur and how surgery may be an option to repair it. This nurse and his sister requested that pt reconsider, after discussing with sister pt told this nurse that he would have surgery if it is needed.
--- NOTE | 2020-10-04 19:00 | NUR ---
REPORT RECEIVED, PT CARE ASSUMED. PT LYING IN BED, EYES CLOSED, RR EVEN AND NONLABORED, NAD, AROUSES EASILY TO VOICE. DENIES ANY NEEDS AT THIS TIME. GIRLFRIEND, KEATON, AT BEDSIDE. BED LOWEST, SRX2, CL WITHIN REACH. BED ALARM ON AND FUNCTIONING. CPOC.
[2020-10-05 06:46] LABS: BASOPHILS 0.6 % (0-2); EOSINOPHILS 0.6 % (0-7); HEMATOCRIT 44.9 % (42.0-54.0); HEMOGLOBIN 15.6 g/dL (13.5-17.5); LYMPHOCYTES 15.3 % (15-50); MCH 31.7 pg (26.0-34.0); MCHC 34.6 g/dL (31.0-37.0); MCV 91.7 fL (80.0-100.0); MEAN PLATELET VOLUME 7.4 fL (7.4-10.4); MONOCYTES 14.1 % (2-11); NEUTROPHILS 69.4 % (40-80); PLATELET COUNT 254 10x3/uL (130-400); RDW 14.4 % (11.5-14.5); WBC 5.9 10x3/uL (4.8-10.8)
--- NOTE | 2020-10-05 07:00 | NUR ---
REPORT RECEIVED. PATIENT IS LYING IN BED RESTING WITH EYES CLOSED. NO S/S OF DISTRESS OBSERVED, RR EVEN AND UNLABORED ON 2L O2 VIA NC. PATIENT AT BEDSIDED. NO NEEDS EXPRESSED AT THIS TIME. CL IN REACH, BED LOCKED AND LOWERED. STEFANI ALARM ON. WILL CPOC.
[2020-10-05 07:35] LABS: ALBUMIN 3.1 g/dL (3.4-5.0); ANION GAP 13.7 mmol/L (8-16); BILIRUBIN - TOTAL 0.69 mg/dL (0.2-1.3); CALCIUM 8.9 mg/dL (8.5-10.1); CARBON DIOXIDE 22.6 mmol/L (21.0-32.0); CREATININE - SERUM 1.1 mg/dL (0.6-1.3); MAGNESIUM - SERUM 1.8 mg/dL (1.8-2.4); POTASSIUM - SERUM 4.3 mmol/L (3.5-5.1); PROTEIN - SERUM 6.4 g/dL (6.4-8.2)
[2020-10-05 07:52] VITALS: BP 104/62
--- NOTE | 2020-10-05 11:37 | NUR ---
I have reviewed this patient and I concur with the Shift Assessment completed by the Licensed Practical Nurse today this shift.
[2020-10-05 15:47] VITALS: BP 109/64
[2020-10-05 20:00] VITALS: BP 96/61
[2020-10-06 01:32] VITALS: BP 106/61
--- NOTE | 2020-10-06 05:30 | NUR ---
CONSENTS SIGNED AND PLACED IN CHART. HIBICLENS ADMINISTERED, COMPLETE LINEN CHANGE COMPLETED.
[2020-10-06 06:10] LABS: EOSINOPHILS 3.1 % (0-7); HEMATOCRIT 48.8 % (42.0-54.0); HEMOGLOBIN 16.9 g/dL (13.5-17.5); MCH 32.1 pg (26.0-34.0); MCHC 34.6 g/dL (31.0-37.0); MCV 92.8 fL (80.0-100.0); MEAN PLATELET VOLUME 7.4 fL (7.4-10.4); MONOCYTES 16.3 % (2-11); NEUTROPHILS 51.6 % (40-80); PLATELET COUNT 242 10x3/uL (130-400); RBC 5.25 10x6/uL (4.20-6.10); RDW 14.4 % (11.5-14.5); WBC 5.7 10x3/uL (4.8-10.8)
[2020-10-06 06:37] LABS: POTASSIUM - SERUM 4.4 mmol/L (3.5-5.1)
--- NOTE | 2020-10-06 07:00 | NUR ---
REPORT RECEIVED. PATIENT IS AAOX3, SITTING UP IN BED. NO S/S OF DISTRESS OBSERVED. RR EVEN AND UNLABORED ON 2L O2 VIA NC. PIV TO RT HAND, PATENT, SL. NO NEEDS EXPRESSED AT THIS TIME. AT BEDSIDE. CL IN REACH, BED LOCKED AND LOWERED. STEFANI ALARM ON. WILL CPOC.
--- NOTE | 2020-10-06 07:40 | NUR ---
PREOP'D PATIENT FOR SURGERY.
--- NOTE | 2020-10-06 07:55 | NUR ---
SURGERY HERE TO GET PATIENT.
[2020-10-06 08:01] LABS: ALBUMIN 3.2 g/dL (3.4-5.0); ALKALINE PHOSPHATASE 65 U/L (30-120); ALT (SGPT) 31 U/L (10-68); BILIRUBIN - TOTAL 0.61 mg/dL (0.2-1.3); CALC OSMOLALITY 257 mosm/kg (275-300); CARBON DIOXIDE 25.8 mmol/L (21.0-32.0); CHLORIDE - SERUM 96 mmol/L (98-107); GLUCOSE 79 mg/dL (74-106); PROTEIN - SERUM 6.5 g/dL (6.4-8.2); SODIUM 128 mmol/L (136-145); UREA NITROGEN 18 mg/dL (7-18); eGFR NON AFRICAN AMERICAN 76 mL/min (90-120)
--- NOTE | 2020-10-06 08:46 | NUR ---
CAUTERY PAD PLACED ON RIGHT THIGH. PLASMA BLADE USED ON SETTING 6/8. AQUAMANTYS USED ON SETTING 170. CAUTERY PAD LOT#[id number] EXP. 01/14/2022.
--- NOTE | 2020-10-06 10:39 | NUR ---
RECEIVED PATIENT FROM SURGERY @ 1020 VSS, ALERT/LETHARGIC, DRGS TO LEFT HIP, C/D/I.
--- NOTE | 2020-10-06 11:31 | NUR ---
I have reviewed this patient and I concur with the Shift Assessment completed by the Licensed Practical Nurse today this shift.
--- NOTE | 2020-10-06 15:13 | NUR ---
RECEIVED TO ROOM. ALERT AND ORIENTED WITH FAMILY PRESENT. FALL PRECAUTIONS IN PLACE.IVF INFUSING TO RIGHT A/C AT PRESCRIBED RATE. DREESSING INTACT TO LLE OF HIP WITH PEDAL PULSES AND SOFIA MCCAIN PRESENT WITH PEDAL PULSES NOTED W/O SIGNS OF PAIN OR DISCOMFORT.ENCOURAGED TO USE CALL LIGHT FOR ASSSIT.
[2020-10-06 16:51] VITALS: BP 92/54
--- NOTE | 2020-10-06 19:15 | MORECARE ---
CASE MANAGEMENT DISCHARGE SUMMARY PATIENT: EMMY PENNINGTON UNIT: [id number] ADM DATE: 10/02/20 AGE: 80 : 38 SEX: M ROOM/BED: D.2213 AUTHOR: IRMA,DOC PHYSICIAN: REFERRING PHYSICIAN: TORSTEN DEMARCO MD DATE OF SERVICE: 10/06/20 Case Management Discharge Planning Summary COMMENTS ENTERED DATE: 10/06/20 19:11 CT COMMENT TYPE: Discharge Planning REVIEWER: Chris Bonds CM met with patient to complete DC plan and to evaluate needs. Patient stated that he readmitted because he felt weakened and couldn't move. Patient stated that he was able to obtain his medications after last discharge but unfortunately was not able to keep his follow up appointments because he readmitted before the appointment date. Patient stated that he followed the dc instructions given to him. It appears that this readmission was due to dehydration and an inability to care himself. Patient lives independently with his roommate, Mark Frazier, a friend. The patient lists his "girl-friend", Penelope Pulido, as his person to notify. Patient stated that his home is safe and has electricity and running water. Patient stated that the home has 2 steps to enter and usually he is able to manage the steps without difficulty. Patient stated that he has no problems paying for medications and he fills his medications at [email or web address] in [place]. . Patient does not recall what his primary care physician/team is called? only that her name is Sujatha and she's and BAND HEAD SAW OPERATOR in [place]. CM discussed availability of home health, rehab services, and medical equipment. Patient declined HHS, SNF, and DME but would like to have inpatient rehab through [facility]. DAVID signed and placed in chart. Patient voiced no other needs at this time and is satisfied with DC plan. DC IMM delivered, explained, signed by the patient, and placed in chart. Signed form also left with the patient. CM will continue to follow and will assist as needed with dc plans/needs. DCP REVIEW SUMMARY ANTICIPATED D/C DATE: EXPECTED LOS : CASE STATUS: DCP Initiated INITIAL REVIEW: 10/02/2020 INITIAL REVIEWER: Chris Bonds FINAL DISCHARGE DISPOSITION: : FINAL REVIEWER: FINAL REVIEW DATE: DCP Focus Questions & Answers DCP Evaluation QUESTION: ANSWER Patient and/or caregiver agree upon recommended discharge plan? : Yes Family / Caregiver's ability to cope with chronic illness: : b. Minimal (occasionally not dependable to meet pt's. needs, can meet pt's. basic ADL's) Patient's current cognitive status: : *Oriented to person, place, situation, time and present Patient's ability to cope with chronic illness : d. No chronic illness Patient gives permission to discuss discharge plans with: (name, relationship and number) : "girl-friend", Penelope Pulido, Does the patient have the ability to pay for or attain post discharge needs / services? : Yes Functional screen assessment: : New onset in difficulty speaking Functional screen assessment: : Can meet basic needs but may require referral for resources Family / Caregiver's ability to cope with chronic illness: : b. Minimal (occasionally not dependable to meet pt's. needs, can meet pt's. basic ADL's) Physical Status: : Partial care dependence Physical Status: : Mobility impaired Equipment needed for post hospitalization: : None Is there a likelihood that the patient will require additional services to return to the preadmission environment? : Yes Living Arrangements: : Home with others Partial Dependence, assistance required for: : Ambulation / Mobility Patient with capacity for self-care or can be cared for in same environment as prior to hospitalization? : No Baseline cognitive status: : *Oriented to person, place, situation, time and present Physical environment modification needed / anticipated for discharge: : No Medication Management: : Patient states can read and understand medication labels Medication Management: : Patient states can afford medications Pharmacy name(s): : [email or web address] in [place] Does Patient have transportation to get home and to follow-up medical appointments when discharged from the hospital? : Yes Would patient like to participate in any Care Coordination programs (if applicable): : Not applicable Does the patient have electricity at home? : Yes Does the patient have running water in their house? : Yes Equipment in use: : Walker - Rolling Mental health screen: : No mental health history DCP Re-evaluation QUESTION: ANSWER Would patient like to participate in any Care Coordination programs (if applicable): : Not applicable PATIENT: EMMY PENNINGTON ENCOUNTER: [id number] MEDICAL RECORD#: [id number] ADMISSION DATE: 10/02/2020 DISCHARGE DATE: ATTENDING MD: TORSTEN GAUTHIER : AGE: 80 MARITAL STATUS: D DC PLAN ID: [id number] FACILITY: [facility] PRINTED ON: 10/06/20 19:15 CT All edits/amendments must be made on the electronic document DICTATION DATE: 10/06/201913 [employer]ENTER [employer] ARCHITECT: RAMIN 10/06/201913 RPT#: [id number] DC DATE: STATUS: ADM IN [facility] [address] [place] [address] END OF REPORT
[2020-10-06 20:00] VITALS: BP 107/73
--- NOTE | 2020-10-06 20:30 | NUR ---
PT STATES THEY HAVEN'T URINATED ALL DAY, STOOD PT AT BEDSIDE UNABLE TO VOID, BLADDER SCANNED 750CC, STRAIGHT CATHED 12OOCC OUT, URINE SAMPLE COLLECTED
--- NOTE | 2020-10-06 23:36 | NUR ---
I have reviewed this patient and I concur with the Shift Assessment completed by the Licensed Practical Nurse today this shift.
[2020-10-07] VITALS: BP 103/60
--- NOTE | 2020-10-07 05:59 | NUR ---
UNABLE TO VOID, BLADDER SCANNED 784CC, CALLED PROVIDER ORDERED YIN CATH FOR RETENTION, YIN CATH PLACED 16FR 900CC OUT, TOLERATED WELL
[2020-10-07 06:29] LABS: BASOPHILS 0.1 % (0-2); EOSINOPHILS 0.1 % (0-7); HEMATOCRIT 41.7 % (42.0-54.0); HEMOGLOBIN 14.4 g/dL (13.5-17.5); LYMPHOCYTES 10.2 % (15-50); MCH 31.9 pg (26.0-34.0); MCHC 34.4 g/dL (31.0-37.0); MCV 92.6 fL (80.0-100.0); MEAN PLATELET VOLUME 7.9 fL (7.4-10.4); MONOCYTES 11.5 % (2-11); NEUTROPHILS 78.1 % (40-80); RBC 4.51 10x6/uL (4.20-6.10); RDW 13.7 % (11.5-14.5)
[2020-10-07 06:37] LABS: ALBUMIN 2.9 g/dL (3.4-5.0); ALKALINE PHOSPHATASE 51 U/L (30-120); ALT (SGPT) 25 U/L (10-68); BILIRUBIN - TOTAL 0.46 mg/dL (0.2-1.3); CALC OSMOLALITY 267 mosm/kg (275-300); CARBON DIOXIDE 26.7 mmol/L (21.0-32.0); CHLORIDE - SERUM 97 mmol/L (98-107); GLUCOSE 114 mg/dL (74-106); MAGNESIUM - SERUM 1.9 mg/dL (1.8-2.4); POTASSIUM - SERUM 4.3 mmol/L (3.5-5.1); PROTEIN - SERUM 6.5 g/dL (6.4-8.2); SODIUM 132 mmol/L (136-145); UREA NITROGEN 17 mg/dL (7-18); eGFR NON AFRICAN AMERICAN 76 mL/min (90-120)
[2020-10-07 06:59] LABS: PLATELET COUNT 314 10x3/uL (130-400); WBC 8.7 10x3/uL (4.8-10.8)
[2020-10-07] MEDS ORDERED: ELIQUIS2.5 MG PO (07:05)
[2020-10-07] MEDS ORDERED: ULTRAM50 MG PO (07:05)
[2020-10-07 09:22] VITALS: BP 107/48
--- NOTE | 2020-10-07 09:50 | NUR ---
SAT PATIENT UP FOR BREAKFAST, NO SIGNS OF DISTRESS, CL IN REACH, YIN IN PLACE NO NEEDS VOICED. CONTINUE WITH PLAN OF CARE
--- NOTE | 2020-10-07 10:43 | NUR ---
I have reviewed this patient and I concur with the Shift Assessment completed by the Licensed Practical Nurse today this shift.
[2020-10-07 11:35] VITALS: BP 96/50
--- NOTE | 2020-10-07 12:57 | MORECARE ---
CASE MANAGEMENT DISCHARGE SUMMARY PATIENT: EMMY PENNINGTON UNIT: [id number] ADM DATE: 10/02/20 AGE: 80 : 38 SEX: M ROOM/BED: D.2213 AUTHOR: IRMA,DOC PHYSICIAN: REFERRING PHYSICIAN: TORSTEN DEMARCO MD DATE OF SERVICE: 10/07/20 Case Management Discharge Planning Summary COMMENTS ENTERED DATE: 10/06/20 19:11 CT COMMENT TYPE: Discharge Planning REVIEWER: Chris Bonds CM met with patient to complete DC plan and to evaluate needs. Patient stated that he readmitted because he felt weakened and couldn't move. Patient stated that he was able to obtain his medications after last discharge but unfortunately was not able to keep his follow up appointments because he readmitted before the appointment date. Patient stated that he followed the dc instructions given to him. It appears that this readmission was due to dehydration and an inability to care himself. Patient lives independently with his roommate, Mark Frazier, a friend. The patient lists his "girl-friend", Penelope Pulido, as his person to notify. Patient stated that his home is safe and has electricity and running water. Patient stated that the home has 2 steps to enter and usually he is able to manage the steps without difficulty. Patient stated that he has no problems paying for medications and he fills his medications at [facility] in [place]. . Patient does not recall what his primary care physician/team is called? only that her name is Sujatha and she's and PATTERNMAKER HELPER in [place]. CM discussed availability of home health, rehab services, and medical equipment. Patient declined HHS, SNF, and DME but would like to have inpatient rehab through [facility]. DAVID signed and placed in chart. Patient voiced no other needs at this time and is satisfied with DC plan. DC IMM delivered, explained, signed by the patient, and placed in chart. Signed form also left with the patient. CM will continue to follow and will assist as needed with dc plans/needs. DCP REVIEW SUMMARY ANTICIPATED D/C DATE: EXPECTED LOS : CASE STATUS: DCP Initiated INITIAL REVIEW: 10/02/2020 INITIAL REVIEWER: Chris Bonds FINAL DISCHARGE DISPOSITION: : FINAL REVIEWER: FINAL REVIEW DATE: DCP Focus Questions & Answers DCP Evaluation QUESTION: ANSWER Patient and/or caregiver agree upon recommended discharge plan? : Yes Family / Caregiver's ability to cope with chronic illness: : b. Minimal (occasionally not dependable to meet pt's. needs, can meet pt's. basic ADL's) Patient's current cognitive status: : *Oriented to person, place, situation, time and present Patient's ability to cope with chronic illness : d. No chronic illness Patient gives permission to discuss discharge plans with: (name, relationship and number) : "girl-friend", Penelope Pulido, Does the patient have the ability to pay for or attain post discharge needs / services? : Yes Functional screen assessment: : New onset in difficulty speaking Functional screen assessment: : Can meet basic needs but may require referral for resources Family / Caregiver's ability to cope with chronic illness: : b. Minimal (occasionally not dependable to meet pt's. needs, can meet pt's. basic ADL's) Physical Status: : Partial care dependence Physical Status: : Mobility impaired Equipment needed for post hospitalization: : None Is there a likelihood that the patient will require additional services to return to the preadmission environment? : Yes Living Arrangements: : Home with others Partial Dependence, assistance required for: : Ambulation / Mobility Patient with capacity for self-care or can be cared for in same environment as prior to hospitalization? : No Baseline cognitive status: : *Oriented to person, place, situation, time and present Physical environment modification needed / anticipated for discharge: : No Medication Management: : Patient states can read and understand medication labels Medication Management: : Patient states can afford medications Pharmacy name(s): : [facility] in [place] Does Patient have transportation to get home and to follow-up medical appointments when discharged from the hospital? : Yes Would patient like to participate in any Care Coordination programs (if applicable): : Not applicable Does the patient have electricity at home? : Yes Does the patient have running water in their house? : Yes Equipment in use: : Walker - Rolling Mental health screen: : No mental health history DCP Re-evaluation QUESTION: ANSWER Would patient like to participate in any Care Coordination programs (if applicable): : Not applicable PATIENT: EMMY PENNINGTON ENCOUNTER: [id number] MEDICAL RECORD#: [id number] ADMISSION DATE: 10/02/2020 DISCHARGE DATE: ATTENDING MD: TORSTEN GAUTHIER : AGE: 80 MARITAL STATUS: D DC PLAN ID: [id number] FACILITY: [facility] PRINTED ON: 10/07/20 12:57 CT All edits/amendments must be made on the electronic document DICTATION DATE: 10/07/20 1257 AGRICULTURE INTERNSHIP: RAMIN 10/07/20 1257 RPT#: [id number] DC DATE: STATUS: ADM IN [facility] [address] [place] [address] END OF REPORT
[2020-10-07 14:18] VITALS: Ht 188 cm; Wt 84.4 kg
--- NOTE | 2020-10-07 16:42 | NUR ---
OT NOTE: (AM) PT COMPLETED SUPINE TO SIT WITH MIN A. PT COMPLETED SIDE ROLLING WITH MIN A. PT COMPLETED SIT TO STAND WITH MIN A. PT REQUIRED MAX A FOR LB HYGIENE TASKS. PT COMPLETED HAIR SHAMPOO WITH MAX A. PT COMPLETED HAIR GROOMING WITH SETUP. (PM) PT COMPLETED ADL MOB WITH MIN A-CGA USING RW. PT COMPLETED BED MOBILITY WITH CGA-MIN A. PT DID WELL. [id number] RAFAEL TOPETE COTA
[2020-10-07 17:28] VITALS: BP 101/52
[2020-10-07 20:00] VITALS: BP 102/52
[2020-10-08] VITALS: BP 116/63
--- NOTE | 2020-10-08 02:50 | NUR ---
PATIENT HAD PAIN MANAGED WITH THE PRESCRIBED TYLENOL, HE IS CURRENTLY RESTING IN BED WITH HIS EYES CLOSED.
[2020-10-08 06:00] LABS: BASOPHILS 0.3 % (0-2); EOSINOPHILS 0.4 % (0-7); HEMATOCRIT 38.5 % (42.0-54.0); LYMPHOCYTES 12.7 % (15-50); MCH 31.4 pg (26.0-34.0); MCHC 33.8 g/dL (31.0-37.0); MCV 93.1 fL (80.0-100.0); MEAN PLATELET VOLUME 7.7 fL (7.4-10.4); MONOCYTES 10.3 % (2-11); NEUTROPHILS 76.3 % (40-80); PLATELET COUNT 296 10x3/uL (130-400); RBC 4.14 10x6/uL (4.20-6.10); RDW 14.2 % (11.5-14.5); WBC 9.9 10x3/uL (4.8-10.8)
[2020-10-08 06:15] LABS: ALBUMIN 2.6 g/dL (3.4-5.0); ALKALINE PHOSPHATASE 48 U/L (30-120); ALT (SGPT) 19 U/L (10-68); CALC OSMOLALITY 261 mosm/kg (275-300); CALCIUM 8.7 mg/dL (8.5-10.1); CARBON DIOXIDE 26.9 mmol/L (21.0-32.0); CHLORIDE - SERUM 99 mmol/L (98-107); CREATININE - SERUM 0.9 mg/dL (0.6-1.3); GLUCOSE 94 mg/dL (74-106); POTASSIUM - SERUM 4.1 mmol/L (3.5-5.1); PROTEIN - SERUM 6.2 g/dL (6.4-8.2); SODIUM 130 mmol/L (136-145); UREA NITROGEN 15 mg/dL (7-18); eGFR NON AFRICAN AMERICAN 86 mL/min (90-120)
[2020-10-08 08:38] VITALS: BP 99/58
--- NOTE | 2020-10-08 08:53 | NUR ---
PATIENT HAS BEEN ACCEPTED FOR ADMIT TO INPATIENT REHAB TODAY. I AM WAITING ON FINAL APPROVAL ON THE ELECTRONIC SCREEN BY THE PD AND MD, AND THEN I WILL CALL THE FLOOR WITH A ROOM NUMBER. THANK YOU AGAIN FOR THIS REFERRAL. NIMESH JACKSON RN CLINICAL LIAISON, INPATIENT REHAB.
--- NOTE | 2020-10-08 09:44 | NUR ---
PATIENT SPOUSE INQUIRED IF PATIENT HAS PNA, PATIENT IS COUGHING UP GREEN SPUTUM, ENCOURAGED PATIENT TO USE I/S AND SIT UP MORE, PLACED SPECIMEN CUP IN PATIENT ROOM. NO OTHER NEEDS AT THIS TIME. CONTINUE WITH PLAN OF CARE
--- NOTE | 2020-10-08 10:40 | NUR ---
PATIENT AND SPOUSE TOLD NEPHROLOGY DR THAT HE HAS NOT HAD A BM IN SEVERAL DAYS, DOCTOR ASKED THAT MIRALAX AND STOOL SOFTENER BE ORDERED, ORDERED AND ADMINISTERED PER SCHEDULE, PATIENT IS NOW WALKING WALKING WITH PHYSICAL THERAPY. NO OTHER NEEDS AT THIS TIME. COTNINUE WITH PLAN OF CARE
--- NOTE | 2020-10-08 11:30 | NUR ---
I have reviewed this patient and I concur with the Shift Assessment completed by the Licensed Practical Nurse today this shift.
[2020-10-08 11:45] VITALS: BP 101/54
--- NOTE | 2020-10-08 12:07 | NUR ---
PATIENT CAN COME TO ROOM 1117A. I HAVE GIVEN THIS INFORMATION TO RIVKA PRITCHETT RN CM, RAFAEL YBARRA RNELASTIC TAPE INSERTER, AND TO MAGDALENO LUCAS RN CLIENT RETENTION SPECIALIST. NIMESH JACKSON RN CLINICAL LIAISON, INPATIENT REHAB.
--- NOTE | 2020-10-08 13:07 | MORECARE ---
CASE MANAGEMENT DISCHARGE SUMMARY PATIENT: EMMY PENNINGTON UNIT: [id number] ADM DATE: 10/02/20 AGE: 80 : 38 SEX: M ROOM/BED: D.2213 AUTHOR: IRMA,DOC PHYSICIAN: REFERRING PHYSICIAN: TORSTEN DEMARCO MD DATE OF SERVICE: 10/08/20 Case Management Discharge Planning Summary COMMENTS ENTERED DATE: 10/08/20 13:01 CT COMMENT TYPE: Discharge Planning REVIEWER: Erendira Delatorre PATIENT WILL BE DISCHARGING TO INPATIENT REHAB TODAY TO ROOM 1117-Smiley PUGH IS IN HIS ROOM AND IS AWARE OF HIS DISCHARGE. SHE HAS LEFT HIS HEARING AIDES WITH HIM ( THEY ARE CURRENTLY IN HIS EARS) & SHE STATED THAT SHE IS TAKING HIS DENTURES. CM TO FOLLOW NEEDED ENTERED DATE: 10/06/20 19:11 CT COMMENT TYPE: Discharge Planning REVIEWER: Chris Bonds CM met with patient to complete DC plan and to evaluate needs. Patient stated that he readmitted because he felt weakened and couldn't move. Patient stated that he was able to obtain his medications after last discharge but unfortunately was not able to keep his follow up appointments because he readmitted before the appointment date. Patient stated that he followed the dc instructions given to him. It appears that this readmission was due to dehydration and an inability to care himself. Patient lives independently with his roommate, Mark Frazier, a friend. The patient lists his "girl-friend", Penelope Pulido, as his person to notify. Patient stated that his home is safe and has electricity and running water. Patient stated that the home has 2 steps to enter and usually he is able to manage the steps without difficulty. Patient stated that he has no problems paying for medications and he fills his medications at [facility] in [place]. . Patient does not recall what his primary care physician/team is called? only that her name is Sujatha and she's and JUMP ROLL OPERATOR in [place]. CM discussed availability of home health, rehab services, and medical equipment. Patient declined HHS, SNF, and DME but would like to have inpatient rehab through [facility]. DAVID signed and placed in chart. Patient voiced no other needs at this time and is satisfied with DC plan. DC IMM delivered, explained, signed by the patient, and placed in chart. Signed form also left with the patient. CM will continue to follow and will assist as needed with dc plans/needs. DCP REVIEW SUMMARY ANTICIPATED D/C DATE: EXPECTED LOS : CASE STATUS: DCP Initiated INITIAL REVIEW: 10/02/2020 INITIAL REVIEWER: Chris Bonds FINAL DISCHARGE DISPOSITION: : FINAL REVIEWER: FINAL REVIEW DATE: DCP Focus Questions & Answers DCP Evaluation QUESTION: ANSWER Patient and/or caregiver agree upon recommended discharge plan? : Yes Family / Caregiver's ability to cope with chronic illness: : b. Minimal (occasionally not dependable to meet pt's. needs, can meet pt's. basic ADL's) Patient's current cognitive status: : *Oriented to person, place, situation, time and present Patient's ability to cope with chronic illness : d. No chronic illness Patient gives permission to discuss discharge plans with: (name, relationship and number) : "girl-friend", Penelope Pulido, Does the patient have the ability to pay for or attain post discharge needs / services? : Yes Functional screen assessment: : New onset in difficulty speaking Functional screen assessment: : Can meet basic needs but may require referral for resources Family / Caregiver's ability to cope with chronic illness: : b. Minimal (occasionally not dependable to meet pt's. needs, can meet pt's. basic ADL's) Physical Status: : Partial care dependence Physical Status: : Mobility impaired Equipment needed for post hospitalization: : None Is there a likelihood that the patient will require additional services to return to the preadmission environment? : Yes Living Arrangements: : Home with others Partial Dependence, assistance required for: : Ambulation / Mobility Patient with capacity for self-care or can be cared for in same environment as prior to hospitalization? : No Baseline cognitive status: : *Oriented to person, place, situation, time and present Physical environment modification needed / anticipated for discharge: : No Medication Management: : Patient states can read and understand medication labels Medication Management: : Patient states can afford medications Pharmacy name(s): : [facility] in [place] Does Patient have transportation to get home and to follow-up medical appointments when discharged from the hospital? : Yes Would patient like to participate in any Care Coordination programs (if applicable): : Not applicable Does the patient have electricity at home? : Yes Does the patient have running water in their house? : Yes Equipment in use: : Walker - Rolling Mental health screen: : No mental health history DCP Re-evaluation QUESTION: ANSWER Would patient like to participate in any Care Coordination programs (if applicable): : Not applicable PATIENT: EMMY PENNINGTON ENCOUNTER: [id number] MEDICAL RECORD#: [id number] ADMISSION DATE: 10/02/2020 DISCHARGE DATE: ATTENDING MD: TORSTEN GAUTHIER : AGE: 80 MARITAL STATUS: D DC PLAN ID: [id number] FACILITY: [facility] PRINTED ON: 10/08/20 13:07 CT All edits/amendments must be made on the electronic document DICTATION DATE: 10/08/201306 PAROLE OFFICER: RAMIN 10/08/20 1307 RPT#: [id number] DC DATE: STATUS: ADM IN [facility] [address] [place] [address] END OF REPORT
--- NOTE | 2020-10-08 14:17 | NUR ---
PATIENT REPORT CALLED TO Arsalan IVEY RN, ALL QUESTIONS ANSWERED, CONTINUE WITH PLAN OF CARE
--- NOTE | 2020-10-08 16:35 | NUR ---
OT NOTE: PT VERY LETHARGIC THIS AM.. FAMILY STATES THAT HE HAS BEEN SLEEPING ALL MORNING. NURSE REPORTS THAT HE WAS NOT GIVEN ANYTHING THAT WOULD MAKE HIM SO SLEEPY..HOWEVER, PT EAGER TO PARTICIPATE IN THERAPY. BED MOB WITH MIN ASSIST FOR L LE MGMT. UNSTEADY WITH SIT TO STAND, HOWEVER, WITH USE OF WALKER, PT ABLE TO AMB IN ROOM WITH MIN ASSIST.. VERY SLOW MANDY; TOILET TRANSFER WITH MIN ASSIST (PT CURRENTLY WITH CATH SO PRACTICED WITH TOILET TRANSFERS.. SIMPLE GROOMING WITH SET UP; EXT ASSIST FOR DONNING AND DOFFING SOCKS.. MIN ASSIST TO NATHALY GOWN. BASIM OLMEDO, OTR/L [phone]
--- NOTE | 2020-10-08 17:23 | NUR ---
OT NOTE: PT COMPLETED ADL MOB WITH RW REQUIRED CGA-MIN A. PT COMPLETED TOILETING WITH MIN A. PT COMPLETED ADL MOB TO SINK WITH CGA AND RW. PT COMPLETED HAND HYGIENE. PT REQUIRED CUES FOR INCREASED SAFETY. PT IS COOPERATIVE. [phone] RAFAEL TOPETE COTA
--- NOTE | 2020-10-09 14:04 | MORECARE ---
CASE MANAGEMENT DISCHARGE SUMMARY PATIENT: EMMY PENNINGTON UNIT: [id number] ADM DATE: 10/02/20 AGE: 80 : 38 SEX: M ROOM/BED: D.2213 AUTHOR: IRMA,DOC PHYSICIAN: REFERRING PHYSICIAN: TORSTEN DEMARCO MD DATE OF SERVICE: 10/09/20 Case Management Discharge Planning Summary COMMENTS ENTERED DATE: 10/08/20 13:01 CT COMMENT TYPE: Discharge Planning REVIEWER: Erendira Delatorre PATIENT WILL BE DISCHARGING TO INPATIENT REHAB TODAY TO ROOM 1117-Smiley PUGH IS IN HIS ROOM AND IS AWARE OF HIS DISCHARGE. SHE HAS LEFT HIS HEARING AIDES WITH HIM ( THEY ARE CURRENTLY IN HIS EARS) & SHE STATED THAT SHE IS TAKING HIS DENTURES. CM TO FOLLOW NEEDED ENTERED DATE: 10/06/20 19:11 CT COMMENT TYPE: Discharge Planning REVIEWER: Chris Bonds CM met with patient to complete DC plan and to evaluate needs. Patient stated that he readmitted because he felt weakened and couldn't move. Patient stated that he was able to obtain his medications after last discharge but unfortunately was not able to keep his follow up appointments because he readmitted before the appointment date. Patient stated that he followed the dc instructions given to him. It appears that this readmission was due to dehydration and an inability to care himself. Patient lives independently with his roommate, Mark Frazier, a friend. The patient lists his "girl-friend", Penelope Pulido, as his person to notify. Patient stated that his home is safe and has electricity and running water. Patient stated that the home has 2 steps to enter and usually he is able to manage the steps without difficulty. Patient stated that he has no problems paying for medications and he fills his medications at [facility] in [place]. . Patient does not recall what his primary care physician/team is called? only that her name is Sujatha and she's and AUDOGRAPH OPERATOR in [place]. CM discussed availability of home health, rehab services, and medical equipment. Patient declined HHS, SNF, and DME but would like to have inpatient rehab through [facility]. DAVID signed and placed in chart. Patient voiced no other needs at this time and is satisfied with DC plan. DC IMM delivered, explained, signed by the patient, and placed in chart. Signed form also left with the patient. CM will continue to follow and will assist as needed with dc plans/needs. DCP REVIEW SUMMARY ANTICIPATED D/C DATE: EXPECTED LOS : CASE STATUS: DCP Initiated INITIAL REVIEW: 10/02/2020 INITIAL REVIEWER: Chris Bonds FINAL DISCHARGE DISPOSITION: : FINAL REVIEWER: FINAL REVIEW DATE: DCP Focus Questions & Answers DCP Evaluation QUESTION: ANSWER Patient gives permission to discuss discharge plans with: (name, relationship and number) : "girl-friend", Penelope Pulido, Patient's ability to cope with chronic illness : d. No chronic illness Patient's current cognitive status: : *Oriented to person, place, situation, time and present Family / Caregiver's ability to cope with chronic illness: : b. Minimal (occasionally not dependable to meet pt's. needs, can meet pt's. basic ADL's) Patient and/or caregiver agree upon recommended discharge plan? : Yes Physical Status: : Mobility impaired Physical Status: : Partial care dependence Family / Caregiver's ability to cope with chronic illness: : b. Minimal (occasionally not dependable to meet pt's. needs, can meet pt's. basic ADL's) Functional screen assessment: : Can meet basic needs but may require referral for resources Functional screen assessment: : New onset in difficulty speaking Does the patient have the ability to pay for or attain post discharge needs / services? : Yes Partial Dependence, assistance required for: : Ambulation / Mobility Living Arrangements: : Home with others Is there a likelihood that the patient will require additional services to return to the preadmission environment? : Yes Equipment needed for post hospitalization: : None Baseline cognitive status: : *Oriented to person, place, situation, time and present Patient with capacity for self-care or can be cared for in same environment as prior to hospitalization? : No Physical environment modification needed / anticipated for discharge: : No Medication Management: : Patient states can afford medications Medication Management: : Patient states can read and understand medication labels Pharmacy name(s): : [facility] in [place] Does Patient have transportation to get home and to follow-up medical appointments when discharged from the hospital? : Yes Would patient like to participate in any Care Coordination programs (if applicable): : Not applicable Does the patient have electricity at home? : Yes Does the patient have running water in their house? : Yes Equipment in use: : [place] [employer] [place] Mental health screen: : No mental health history DCP Re-evaluation QUESTION: ANSWER Would patient like to participate in any Care Coordination programs (if applicable): : Not applicable PATIENT: EMMY PENNINGTON ENCOUNTER: [id number] MEDICAL RECORD#: [id number] ADMISSION DATE: 10/02/2020 DISCHARGE DATE: 10/08/2020 ATTENDING MD: TORSTEN GAUTHIER : AGE: 80 MARITAL STATUS: D DC PLAN ID: [id number] FACILITY: [facility] PRINTED ON: 10/09/20 14:04 CT All edits/amendments must be made on the electronic document DICTATION DATE: 10/09/201403 TOOL MAINTENANCE WORKER: RAMIN 10/09/20 1404 RPT#: [id number] DC DATE:10/08/20 STATUS: DIS IN [facility] [address] [place] [address] END OF REPORT
--- NOTE | 2020-10-09 16:18 | MORECARE ---
CASE MANAGEMENT DISCHARGE SUMMARY PATIENT: EMMY PENNINGTON UNIT: [id number] ADM DATE: 10/02/20 AGE: 80 : 38 SEX: M ROOM/BED: D.2213 AUTHOR: IRMA,DOC PHYSICIAN: REFERRING PHYSICIAN: TORSTEN DEMARCO MD DATE OF SERVICE: 10/09/20 Case Management Discharge Planning Summary COMMENTS ENTERED DATE: 10/08/20 13:01 CT COMMENT TYPE: Discharge Planning REVIEWER: Erendira Delatorre PATIENT WILL BE DISCHARGING TO INPATIENT REHAB TODAY TO ROOM 1117-Smiley PUGH IS IN HIS ROOM AND IS AWARE OF HIS DISCHARGE. SHE HAS LEFT HIS HEARING AIDES WITH HIM ( THEY ARE CURRENTLY IN HIS EARS) & SHE STATED THAT SHE IS TAKING HIS DENTURES. CM TO FOLLOW NEEDED ENTERED DATE: 10/06/20 19:11 CT COMMENT TYPE: Discharge Planning REVIEWER: Chris Bonds CM met with patient to complete DC plan and to evaluate needs. Patient stated that he readmitted because he felt weakened and couldn't move. Patient stated that he was able to obtain his medications after last discharge but unfortunately was not able to keep his follow up appointments because he readmitted before the appointment date. Patient stated that he followed the dc instructions given to him. It appears that this readmission was due to dehydration and an inability to care himself. Patient lives independently with his roommate, Mark Frazier, a friend. The patient lists his "girl-friend", Penelope Pulido, as his person to notify. Patient stated that his home is safe and has electricity and running water. Patient stated that the home has 2 steps to enter and usually he is able to manage the steps without difficulty. Patient stated that he has no problems paying for medications and he fills his medications at [facility] in [place]. . Patient does not recall what his primary care physician/team is called? only that her name is Sujatha and she's and [employer] POLICY SPECIALIST in [place]. CM discussed availability of home health, rehab services, and medical equipment. Patient declined HHS, SNF, and DME but would like to have inpatient rehab through [facility]. DAVID signed and placed in chart. Patient voiced no other needs at this time and is satisfied with DC plan. DC IMM delivered, explained, signed by the patient, and placed in chart. Signed form also left with the patient. CM will continue to follow and will assist as needed with dc plans/needs. DCP REVIEW SUMMARY ANTICIPATED D/C DATE: EXPECTED LOS : CASE STATUS: DCP Initiated INITIAL REVIEW: 10/02/2020 INITIAL REVIEWER: Chris Bonds FINAL DISCHARGE DISPOSITION: : FINAL REVIEWER: FINAL REVIEW DATE: DCP Focus Questions & Answers DCP Evaluation QUESTION: ANSWER Patient gives permission to discuss discharge plans with: (name, relationship and number) : "girl-friend", Penelope Pulido, Patient's ability to cope with chronic illness : d. No chronic illness Patient's current cognitive status: : *Oriented to person, place, situation, time and present Family / Caregiver's ability to cope with chronic illness: : b. Minimal (occasionally not dependable to meet pt's. needs, can meet pt's. basic ADL's) Patient and/or caregiver agree upon recommended discharge plan? : Yes Physical Status: : Mobility impaired Physical Status: : Partial care dependence Family / Caregiver's ability to cope with chronic illness: : b. Minimal (occasionally not dependable to meet pt's. needs, can meet pt's. basic ADL's) Functional screen assessment: : Can meet basic needs but may require referral for resources Functional screen assessment: : New onset in difficulty speaking Does the patient have the ability to pay for or attain post discharge needs / services? : Yes Partial Dependence, assistance required for: : Ambulation / Mobility Living Arrangements: : Home with others Is there a likelihood that the patient will require additional services to return to the preadmission environment? : Yes Equipment needed for post hospitalization: : None Baseline cognitive status: : *Oriented to person, place, situation, time and present Patient with capacity for self-care or can be cared for in same environment as prior to hospitalization? : No Physical environment modification needed / anticipated for discharge: : No Medication Management: : Patient states can afford medications Medication Management: : Patient states can read and understand medication labels Pharmacy name(s): : [facility] in [place] Does Patient have transportation to get home and to follow-up medical appointments when discharged from the hospital? : Yes Would patient like to participate in any Care Coordination programs (if applicable): : Not applicable Does the patient have electricity at home? : Yes Does the patient have running water in their house? : Yes Equipment in use: : [place] [employer] [place] Mental health screen: : No mental health history DCP Re-evaluation QUESTION: ANSWER Would patient like to participate in any Care Coordination programs (if applicable): : Not applicable PATIENT: EMMY PENNINGTON ENCOUNTER: [id number] MEDICAL RECORD#: [id number] ADMISSION DATE: 10/02/2020 DISCHARGE DATE: 10/08/2020 ATTENDING MD: TORSTEN GAUTHIER : AGE: 80 MARITAL STATUS: D DC PLAN ID: [id number] FACILITY: [facility] PRINTED ON: 10/09/20 16:18 CT All edits/amendments must be made on the electronic document DICTATION DATE: 10/09/201617 SIGN OUT CLERK: RAMIN 10/09/201617 RPT#: [id number] DC DATE:10/08/20 STATUS: DIS IN [facility] [address] [place] [address] END OF REPORT
--- NOTE | 2020-10-18 15:41 | OP ---
PATIENT NAME: EMMY PENNINGTON MEDICAL RECORD: [id number] LOCATION:[facility] ADMISSION DATE:10/02/20 SURGEON: KI LINTON DO DATE OF OPERATION: 10/06/2020 PROCEDURE PERFORMED: Left total hip arthroplasty. PREOPERATIVE DIAGNOSIS: Nondisplaced left femoral neck fracture. POSTOPERATIVE DIAGNOSIS: Nondisplaced left femoral neck fracture. INDICATIONS: Mr. Pennington is an 80-year-old male who came to the hospital for weakness and had some cardiac issues. He was in the hospital and fell onto his left side and left hip. This was on the I believe. X-rays were taken and seen a nondisplaced femoral neck fracture at the head and neck junction. Also, on CT, it was nondisplaced, had a discussion with him on Wednesday, the , I told him we could have several options, one is do nothing, he would be nonweightbearing for about 6 weeks and start toe-touch. We could put some screws in it, 3 cannulated screws and the same treatment, toe touch weightbearing for about 6 weeks. I could replace the hip and he could weightbear on it the right away, but he does have extreme pain, he be at risk for infection, bleeding, damage to nerves or vessels, leg length discrepancy, continued pain, failure of implants, fracture, and even . Initially, he did not want anything done, but then I came on Wednesday morning, the to round and the nurse had told me to talk to his family, his family decided after discussion with him that he wanted something done and he decided on the total hip. He was okay with all that and he did sign the consent. SURGEON: Ki Linton DO DESCRIPTION OF PROCEDURE: The patient was taken to the operative suite, laid in supine position, given general anesthetic and intubated, given 2 grams of Ancef and a gram of TXA. He was put on the [place] table, positioned, the left hip was then prepped and draped in sterile fashion. Timeout was performed and everyone was in agreeance with the correct side, site, patient and procedure. I then made an incision over the tensor fasciae latae muscle. Made careful dissection down to the muscle and taken to the fascia anteriorly and the muscle belly posteriorly, opened up the rectus interval, rectus medially and tensor fascia jorge laterally. I then encountered the ascending branch of lateral femoral circumflex. We tied it off, coagulated and cut with plasma blade and then coagulated with Aquamantys. I then put Hohmanns around the capsule, opened up the capsule, tied the capsule, put Hohmanns around the neck of the femur and saw the fracture at the superior aspect of the neck and made a neck cut and removed the head and neck. I then put in the Charnley, removed the labrum and the pulvinar, coagulating any bleeding with Aquamantys and then reamed up to a 58, 58 cup was then impacted and I then put in the liner in her x-ray and impacted into place Link to ensure that everything was in and it was not loose and it was not. I then exposed the femur, used a cookie cutter to get lateral and a canal finder. I then broached from the 7 to a 14, 14 fit well. I then reduced a standard neck as he had a very long neck on the x-ray. It appeared to be very short to the right side rather. I than use a +6 and reduced it and pelvis was not well aligned and off the right. Ischial tuberosity was equal lengths to the right hip on the lesser trochanter. The same with the left one. Ischial tuberosity measuring and being parallel to the floor, his lesser trochanters were equal length. Decided to go with a +6 neck. I then dislocated OPERATIVE REPORT [id number] EMMY PENNINGTON the trial, removed the trial implants and irrigated and then put in the 14 stem with a +6 high offset neck and a reduced it, it reduced very well, had good stability and a small bowel movement on internal and external rotation. There was no movement with shucking. We then got x-rays at the stem of the femur. There was no fracture seen distal to the stem or around the stem. The AP pelvis again had the same findings as with the trial with a +6 neck. They were equal lengths parallel to the floor, and off at each ischial tuberosity, but going off with both of them. The pelvis was somewhat tilted. I then measured off the superior pole of the patella and they appeared to be equal lengths. I then irrigated with 10% povidone iodine and 500 mL normal saline solution, let it sit for a couple of minutes and irrigated that out with a liter of normal saline, put in a Giles, vancomycin and tobramycin powder, removed the tagged capsule stitch and closed the tensor fascia jorge fascia with #1 Vicryl in [id number] and then a running locking stitch and then the skin with 2-0 Vicryl in an inverted interrupted fashion, 4-0 Monocryl ran on the skin. He was dressed with Prineo glue, Telfa and Tegaderm once it dried. He was awakened and taken to recovery in stable condition. Blood loss approximately 350 mL. He was given another gram of TXA prior to leaving the OR. He was left in stable condition. TRANSINT:[id number] Voice Confirmation ID: [id number] DOCUMENT ID: [id number] KI LINTON DO at 1541 CC: [id number] DICTATION DATE: 10/06/20 0951 MANAGER POST: 10/08/20 1035 DIS IN 10/08/20 [facility] [address] [place] [address]
== END 2020-10-08 14:18 | DRG 876 ==
LOC: D.ER 10:38 → D.MS 13:17 → D.M2 13:17 → D.MS 10-06 14:47
PROVIDERS: Family Medicine; Orthopaedic Surgery; ADMIT Family Medicine Adult Medicine; ATTEND Family Medicine Adult Medicine
PROC: 0SRB0JA Replacement of Left Hip Joint with Synthetic Substitute, Uncemented, Open Approach (ICD-10-PCS; principal; 2020-10-06 07:40)
DX: R54 Age-related physical debility (principal); S72.002A Fracture of unspecified part of neck of left femur, initial encounter for closed fracture; I10 Essential (primary) hypertension; I48.91 Unspecified atrial fibrillation; K21.9 Gastro-esophageal reflux disease without esophagitis; N40.0 Benign prostatic hyperplasia without lower urinary tract symptoms; H93.19 Tinnitus, unspecified ear; F10.20 Alcohol dependence, uncomplicated; E86.0 Dehydration; Z68.23 Body mass index [BMI] 23.0-23.9, adult; R62.7 Adult failure to thrive; W19.XXXA Unspecified fall, initial encounter; Y92.239 Unspecified place in hospital as the place of occurrence of the external cause

== ENCOUNTER 2020-10-08 12:56 | Inpatient (IN) | payer MEDICARE, BC ==
[~2020-10-08] VITALS: Ht 188 cm; Wt 74.8 kg
[~2020-10-08 12:56] MED LIST changes: +ELIQUIS2.5 MG PO; +ULTRAM50 MG PO
--- NOTE | 2020-10-08 14:08 | NUR ---
RECIEVED ON FLOOR TO ROOM 1115P.ORIENTED TO ROOM AND SURROUNDINGS.
[2020-10-08 14:50] VITALS: BP 112/58; BMI 21.2
--- NOTE | 2020-10-08 19:07 | NUR ---
BEDSIDE REPORT COMPLETE. RECEIVED PT LYING IN BED AWAKE. ALERT AND ORIENTED X4. DENIES ANY NEEDS OR PAIN. LEFT HIP DRESSING INTACT. LEFT ELBOW MEPILEX INTACT. NO DISTRESS NOTED. YIN PATENT AND FREE FROM KINKS. CALL LIGHT AND WATER WITHIN REACH. STEFANI ALARM ON. CPOC
[2020-10-08 20:16] VITALS: BP 123/60
[2020-10-08 23:18] LABS: BILIRUBIN NEGATIVE (NEGATIVE); KETONE NEGATIVE (NEGATIVE); NITRITE NEGATIVE (NEGATIVE); UROBILINOGEN NORMAL mg/dL (< 2)
[2020-10-08 23:20] LABS: BACTERIA FEW HPF (NONE SEEN); SQUAMOUS EPITHELIAL 0-5 HPF (0-4); WHITE CELLS - URINE 0-5 HPF (0-1)
--- NOTE | 2020-10-09 00:47 | NUR ---
PT LYING IN BED ON RIGHT SIDE EYES CLOSED RESTING. RR EVEN AND UNLABORED. CALL LIGHT WITHIN REACH. STEFAIN ALARM ON.
--- NOTE | 2020-10-09 04:05 | NUR ---
PT LYING IN BED ON LEFT SIDE EYES CLOSED RESTING. HOB ELEVATED. RR EVEN AND UNLABORED. EMPTIED 1100ML CASSIDY URINE FROM YIN BAG. STEFANI ALARM ON
--- NOTE | 2020-10-09 06:36 | NUR ---
PT PARTICIPATING IN PHYSICAL THERAPY WITH ANA. DENIES ANY NEEDS OR PAIN. NO DISTRESS NOTED.
[2020-10-09 07:15] LABS: BASOPHILS 0.4 % (0-2); EOSINOPHILS 0.9 % (0-7); HEMATOCRIT 40.9 % (42.0-54.0); LYMPHOCYTES 16.6 % (15-50); MCH 31.9 pg (26.0-34.0); MCHC 34.3 g/dL (31.0-37.0); MONOCYTES 10.2 % (2-11); NEUTROPHILS 71.9 % (40-80); RDW 14.1 % (11.5-14.5)
[2020-10-09 07:39] LABS: CALC OSMOLALITY 266 mosm/kg (275-300); CALCIUM 9.4 mg/dL (8.5-10.1); CARBON DIOXIDE 29.8 mmol/L (21.0-32.0); CHLORIDE - SERUM 96 mmol/L (98-107); GLUCOSE 107 mg/dL (74-106); POTASSIUM - SERUM 4.2 mmol/L (3.5-5.1); SODIUM 133 mmol/L (136-145); UREA NITROGEN 14 mg/dL (7-18); eGFR NON AFRICAN AMERICAN 76 mL/min (90-120)
[2020-10-09 07:57] VITALS: BP 108/64
--- NOTE | 2020-10-09 08:00 | NUR ---
SHIFT ASSMT COMPLETED.CL IN REACH.
[2020-10-09 08:12] LABS: PLATELET COUNT 383 10x3/uL (130-400)
--- NOTE | 2020-10-09 12:00 | NUR ---
SITTING UP IN WC EATING LUNCH.CL IN REACH.
--- NOTE | 2020-10-09 13:58 | NUR ---
CARE TEAM MEETING: PATIENT IS NEW TO UNIT AND WILL BE RA AT NEXT MEETING. DISCHARGE PLANS ARE FOR PATIENT TO RETURN TO HIS HOME. WILL CONTINUE TO FOLLOW WITH PATIENT. AT THIS TIME PATIENT CANNOT REMEMBER HIS PCP NAME.
[2020-10-09 14:24] VITALS: Ht 188 cm; Wt 74.8 kg
--- NOTE | 2020-10-09 18:58 | NUR ---
BEDSIDE REPORT COMPLETE. RECEIVED PT LYING IN BED EYES CLOSED RESTING. EASILY AROUSED WITH STIMULI. DENIES ANY NEEDS OR PAIN. VERY [place]. ALERT AND ORIENTED X3. YIN CATH PATENT FREE FROM KINKS. LEFT HIP INCISION JEANNINE. TAPE BLISTERS NOTED. CALL LIGHT AND WATER WITHIN REACH. STEFANI ALARM ON. CPOC
[2020-10-09 19:55] VITALS: BP 101/66
--- NOTE | 2020-10-10 01:33 | NUR ---
PT LYING IN BED ON RIGHT SIDE EYES CLOSED RESTING. RR EVEN AND UNLABORED. CALL LIGHT WITHIN REACH. STEFAIN ALARM ON
--- NOTE | 2020-10-10 05:55 | NUR ---
PT LYING IN BED EYES CLOSED RESTING. NO DISTRESS NOTED. NO ACUTE CHANGES IN CONDITION THIS SHIFT. YIN EMPTIED 1100ML DARK URINE. CALL LIGHT AND WATER WITHIN REACH. STEFANI ALARM ON
[2020-10-10 07:24] VITALS: BP 119/67
--- NOTE | 2020-10-10 14:30 | NUR ---
SITTING IN WC IN ROOM. DENIES NEEDS. HEARING AIDS IN X2. DENIES INCREASED PAIN. F/C PATENT. CALL LIGHT IN REACH
--- NOTE | 2020-10-10 18:55 | NUR ---
BEDSIDE REPORT COMPLETE. RECEIVED PT LYING IN BED EYES CLOSED RESTING. HOB ELEVATED. EASILY AROUSED WITH STIMULI. ALERT AND ORIENTED X4. DENIES ANY NEEDS OR PAIN. CONTINUES ON O2/2L VIA NC. LEFT HIP INCISION DERMABOND CLOSURE INTACT, SOME REDNESS, SWELLING, WARMTH NOTED. OPEN TO AIR. YIN PATENT FREE FROM KINKS. CALL LIGHT AND WATER WITHIN REACH. STEFANI ALARM ON. CPOC
[2020-10-10 20:02] VITALS: BP 93/52
--- NOTE | 2020-10-11 01:00 | NUR ---
PT LYING IN BED SUPINE EYES CLOSED RESTING. RR EVEN AND UNLABORED. CALL LIGHT WITHIN REACH. STEFANI ALARM ON.
--- NOTE | 2020-10-11 03:45 | NUR ---
PT CALLED REQUESTING ASSIST TO RESTROOM, PT TRANSFERED WITH MOD ASSIST. INSTRUCTED PT TO PULL NURSE CALL, PT RETURNED DEMOSTRATED HOW TO USE BATHROOM PULL CORD.
--- NOTE | 2020-10-11 04:00 | NUR ---
PT CALLED REQUESTING BEDPAN, ASSISTED PT WITH BEDPAN. VOIDED CLEAR YELLOW URINE. PERICARE PROVIDED. PT REQUESTS WARM WASHCLOTH AND ORAL HYGIENE PRODUCTS IN ORDER TO WASH FACE AND BRUSH TEETH. PROVIDED SUPPLIES AND INSTRUCTED PT TO CALL WHEN FINISHED. PT SITTING UP IN BED. HOB 90 DEGREES. DENIES ANY OTHER NEEDS OR PAIN. NO DISTRESS NOTED. NO ACUTE CHANGES IN CONDITION THIS SHIFT. CALL LIGHT WITHIN REACH. STEFANI ALARM ON
--- NOTE | 2020-10-11 04:36 | NUR ---
PT PULLED RESTROOM PULL CORD, FOUND PT SITTING IN W/C IN BATHROOM, EDUCATED PT ON IMPORTANCE OF WAITING FOR SAFETY PURPOSES. PT VERBALIZED UNDERSTANDING. PT WAS UNABLE TO HAVE SUCCESSFUL BM, PT STATES IT WAS TOO HARD AND HE DOES NOT HAVE THE STAMINA OR STRENGTH TO PUSH FECES OUT. PT REQUESTED MEDICATION FOR CONSTIPATION. ASSISTED PT BACK TO BED WITH MAX ASSIST D/T EXHAUSTION. HOB ELEVATED. HEELS FLOATED. YIN BAG SECURED BELOW BLADDER. CALL LIGHT AND WATER WITHIN REACH. STEFANI ALARM ON
[2020-10-11 06:57] LABS: BASOPHILS 0.4 % (0-2); EOSINOPHILS 3.5 % (0-7); HEMATOCRIT 37.9 % (42.0-54.0); MCH 31.5 pg (26.0-34.0); MCHC 34.2 g/dL (31.0-37.0); MEAN PLATELET VOLUME 7.2 fL (7.4-10.4); MONOCYTES 11.7 % (2-11); NEUTROPHILS 74.4 % (40-80); PLATELET COUNT 426 10x3/uL (130-400); RBC 4.12 10x6/uL (4.20-6.10); RDW 14.3 % (11.5-14.5); WBC 10.3 10x3/uL (4.8-10.8)
[2020-10-11 07:23] LABS: ANION GAP 10.9 mmol/L (8-16); CALCIUM 9.4 mg/dL (8.5-10.1); CARBON DIOXIDE 28.9 mmol/L (21.0-32.0); CREATININE - SERUM 1.1 mg/dL (0.6-1.3); POTASSIUM - SERUM 4.8 mmol/L (3.5-5.1)
--- NOTE | 2020-10-11 07:33 | NUR ---
RESTING IN BED, NO DISTRESS NOTED, EYES CLOSED, CONT TO MONITOR NEEDS
--- NOTE | 2020-10-11 19:36 | NUR ---
RESTING IN BED WITH RESPIRATIONS UNLABORED. LEFT HIP DRESSING INTACT. YIN PATENT. URINE IS DARK AND CONCENTRATED. NO ACUTE DISTRESS NOTED. CALL LIGHT IN REACH.
[2020-10-11 20:00] VITALS: BP 96/42
--- NOTE | 2020-10-12 01:23 | NUR ---
RESTING WITH EYES CLOSED AND RESPIRATIONS UNLABORED. NO DISTRESS NOTED.
--- NOTE | 2020-10-12 05:26 | NUR ---
QUIET HOURS. NO ACUTE CHANGES IN CONDITION THIS SHIFT. RESTING IN BED WITH NO DISTRESS NOTED. YIN PATENT. URINE DARK TEA COLORED.
[2020-10-12 07:00] VITALS: BP 90/53
--- NOTE | 2020-10-12 08:00 | NUR ---
SHIFT ASSMT COMPLETED.
[2020-10-12 19:00] VITALS: BP 102/53
--- NOTE | 2020-10-12 19:16 | NUR ---
AWAKE AND ALERT. RESTING IN BED WITH RESPIRATIONS UNLABORED. HARD OF HEARING. YIN PATENT WITH DARK URINE NOTED. LEFT HIP DERMABOND INTACT. NO DISTRESS NOTED. CALL LIGHT IN REACH.
--- NOTE | 2020-10-12 21:30 | NUR ---
SHOWER GIVEN. TOLERATED WELL. BED LINENS CHANGED. ASSISTED BACK TO BED. NO DISTRESS NOTED.
--- NOTE | 2020-10-13 05:09 | NUR ---
QUIET HOURS. NO ACUTE CHANGES IN CONDITION THIS SHIFT. RESTING IN BED WITH NO DISTRESS NOTED. ANNAMARIA PATENT.
[2020-10-13 07:00] VITALS: BP 94/54
--- NOTE | 2020-10-13 08:00 | NUR ---
SHIFT ASSMT COMPLETED.CL IN REACH.
--- NOTE | 2020-10-13 12:00 | NUR ---
UP IN BED TIRED EASY AFTER BEING UP IN CHAIR THIS AM.
--- NOTE | 2020-10-13 17:11 | NUR ---
EATING LUNCH.HAS DONE BETTER FOR THIS MEAL.ENCOURAGED TO EAT BETTER
--- NOTE | 2020-10-13 19:31 | NUR ---
RESTING IN BED, NO DISTRESS NOTED, RED CLIFF, CONT TO MONITOR SAFETY AND WOUND HEALING TO HIP
[2020-10-13 19:51] VITALS: BP 155/80
--- NOTE | 2020-10-14 06:00 | NUR ---
AM BATHING DONE, RETURNED TO BED, NO DISTRESS NOTED, CONT TO MONITOR
[2020-10-14 07:00] VITALS: BP 103/43
[2020-10-14 07:05] LABS: BASOPHILS 0.9 % (0-2); EOSINOPHILS 5.2 % (0-7); MCH 31.4 pg (26.0-34.0); MCHC 34.1 g/dL (31.0-37.0); MCV 91.9 fL (80.0-100.0); MEAN PLATELET VOLUME 6.7 fL (7.4-10.4); MONOCYTES 11.1 % (2-11); NEUTROPHILS 64.8 % (40-80); PLATELET COUNT 486 10x3/uL (130-400); RBC 4.14 10x6/uL (4.20-6.10); RDW 13.9 % (11.5-14.5); WBC 10.5 10x3/uL (4.8-10.8)
[2020-10-14 07:51] LABS: CALC OSMOLALITY 253 mosm/kg (275-300); CALCIUM 9.1 mg/dL (8.5-10.1); CARBON DIOXIDE 27.5 mmol/L (21.0-32.0); CHLORIDE - SERUM 91 mmol/L (98-107); CREATININE - SERUM 0.9 mg/dL (0.6-1.3); GLUCOSE 95 mg/dL (74-106); POTASSIUM - SERUM 4.6 mmol/L (3.5-5.1); SODIUM 125 mmol/L (136-145); UREA NITROGEN 19 mg/dL (7-18); eGFR NON AFRICAN AMERICAN 86 mL/min (90-120)
--- NOTE | 2020-10-14 08:30 | NUR ---
LEFT HIP INCISION HAS DURA MALHOTRA ON IT. NO S/S INFECTION. INCISION IS OPEN TO AIR. F/C PATENT. CRANBERRY URINE IN BAG. ENCOURAGED PT TO DRINK MORE WATER.
--- NOTE | 2020-10-14 18:53 | NUR ---
BEDSIDE REPORT COMPLETE. RECEIVED PT LYING IN BED EYES CLOSED RESTING. EASILY AROUSED WITH STIMULI. ALERT AND ORIENTED X3. VERY [place]. CONTINUES ON O2/2L VIA NC. YIN CATH PATENT FREE FROM KINKS. URINE IN YIN BAG DARK CRANBERRY IN COLOR. LEFT HIP INCISION JEANNINE WITH DERMABOND CLOSURE INTACT. PT DENIES ANY NEEDS OR PAIN. NO DISTRESS NOTED. CALL LIGHT AND WATER WITHIN REACH. STEFANI ALARM ON. CPOC
[2020-10-14 21:44] VITALS: BP 99/53
--- NOTE | 2020-10-15 00:39 | NUR ---
PT LYING IN BED ON LEFT SIDE EYES CLOSED RESTING. RR EVEN AND UNLABORED. STEFANI ALARM ON
--- NOTE | 2020-10-15 06:06 | NUR ---
PT LYING IN BED SUPINE EYES CLOSED RESTING. EASILY AROUSED WITH STIMULI. DENIES ANY NEEDS OR PAIN. NO DISTRESS NOTED. NO ACUTE CHANGES IN CONDITION THIS SHIFT. CALL LIGHT AND WATER WITHIN REACH. STEFANI ALARM ON
[2020-10-15 07:41] VITALS: BP 129/69
--- NOTE | 2020-10-15 14:18 | NUR ---
Nutrition Re-Assessment Diet: Regular + Vanilla Ensure TID PO intake: ~54% average x last 6 meals. Ate 0% of breakfast meal. Asleep at time of RD visit. RD noted open bottles of Ensure on bedside table, it appears that he has been drinking some Ensure. Last BM: 10/15/20 Wt: 165# (10/09/20) Meds noted: probiotics, abx Labs noted: Na 125(L) Estimated nutrition needs: 2150-2600cal (25-30kcal/kg IBW), 75-90gms protein (1-1.2gms/kg), 1875-2250mL fluid (or per MD) Nutrition diagnosis: Inadequate energy intake r/t inadequate oral intake AEB PO intake <75% meals. Nutrition goals: -PO intake =/>75% meals -Meet fluid needs -Stable weight DHS Recommendations/Interventions: -Recommend continue current diet and oral nutrition supplements. Will continue to honor food preferences within diet restrictions. -Will continue to monitor PO intake and wt trend. -RD will follow-up within 7 days.
--- NOTE | 2020-10-15 14:34 | NUR ---
FC DC'D PER ORDER FROM DR DEL CID. HIS URINE IS DARK COLORED. ENCOURAGED PT TO DRINK MORE WATER. GAVE PT URINAL AND WAITING ON HIM TO VOID.
[2020-10-15 21:31] VITALS: BP 106/54
--- NOTE | 2020-10-16 02:18 | NUR ---
PT LYING IN BED SUPINE EYES CLOSED RESTING. HOB ELEVATED. RR EVEN AND UNLABORED. STEFANI ALARM ON
--- NOTE | 2020-10-16 05:29 | NUR ---
PT IN SHOWER ASSISTED BY MARGY BARRY. PT DENIES ANY NEEDS OR PAIN. NO DISTRESS NOTED.
[2020-10-16 07:24] VITALS: BP 93/50
[2020-10-16 07:27] LABS: BASOPHILS 0.9 % (0-2); EOSINOPHILS 5.8 % (0-7); HEMATOCRIT 34.6 % (42.0-54.0); LYMPHOCYTES 14.1 % (15-50); MCH 31.6 pg (26.0-34.0); MCHC 34.7 g/dL (31.0-37.0); MCV 91.1 fL (80.0-100.0); MEAN PLATELET VOLUME 6.9 fL (7.4-10.4); MONOCYTES 12.8 % (2-11); NEUTROPHILS 66.4 % (40-80); PLATELET COUNT 448 10x3/uL (130-400); RDW 13.8 % (11.5-14.5); WBC 10.3 10x3/uL (4.8-10.8)
[2020-10-16 07:38] LABS: CALC OSMOLALITY 261 mosm/kg (275-300); CARBON DIOXIDE 28.3 mmol/L (21.0-32.0); CHLORIDE - SERUM 95 mmol/L (98-107); GLUCOSE 100 mg/dL (74-106); POTASSIUM - SERUM 4.4 mmol/L (3.5-5.1); SODIUM 129 mmol/L (136-145); UREA NITROGEN 22 mg/dL (7-18); eGFR NON AFRICAN AMERICAN 76 mL/min (90-120)
--- NOTE | 2020-10-16 08:00 | NUR ---
PATIENT IS ALERT/ORIENT. VERY HARD OF HEARING. WEARS HEARING AIDS BILATERAL. STILL UNABLE TO HEAR. OXYGEN ON AT 2L PER N/C. BED ALARM ON. CALL LIGHT WITHIN REACH. VOICES NO NEEDS. WILL CONTINUE WITH PLAN OF CARE
--- NOTE | 2020-10-16 10:10 | NUR ---
PATIENT IN REHAB ROOM. WORKING WITH PHYSICAL THERAPIST. DENIES ANY PAIN/DISC AT THIS TIME.
--- NOTE | 2020-10-16 12:43 | NUR ---
IN PATIENTS ROOM. WAITING FOR CARE PLAN MEETING.
--- NOTE | 2020-10-16 15:55 | NUR ---
CARE TEAM MEETING: PATIENT FAMILY ATTENDED THE MEETING. QUESTIONS AND CONCERNS WERE ADDRESSED. TENATIVE DC DATE IS 10/22/20. FAMILY CONCERNED ABOUT PATIENT COUGH. DR. MADDOX HAS ORDERED A CHEST XRAY. WILL CONTINUE TO FOLLOW WITH PATIENT.
--- NOTE | 2020-10-16 17:46 | NUR ---
PATIENT HAS A VISITOR IN THE ROOM. SITTING UP IN BED TO EAT SUPPER. VOICES NO NEEDS AT THIS TIME.
--- NOTE | 2020-10-16 18:52 | NUR ---
BEDSIDE REPORT COMPLETE. RECEIVED PT LYING IN BED AWAKE. HOB ELEVATED. ALERT AND ORIENTED X4. VERY [place], RIGHT EAR BETTER THAN LEFT. HEARING AIDS IN CONTAINER AT BEDSIDE. PER DAYSHIFT NURSE HEARING AIDS ARE NOT WORKING PROPERLY. CONTINUES ON ROOM AIR WITH OXYGEN @ 2L PRN. LEFT HIP INCISION WITH DERMABOND CLOSURE INTACT OPEN TO AIR. BRUISING NOTED, INCISION WITHOUT DRAINAGE OR WARMTH. PT DENIES ANY NEEDS OR PAIN. NO DISTRESS NOTED. CALL LIGHT WITHIN REACH. STEFANI ALARM ON. CPOC
[2020-10-16 20:17] VITALS: BP 106/47
--- NOTE | 2020-10-17 03:02 | NUR ---
PT LYING IN BED SUPINE EYES CLOSED RESTING. HOB ELEVATED. RR EVEN AND UNLABORED
[2020-10-17 08:07] VITALS: BP 90/43
--- NOTE | 2020-10-17 10:16 | NUR ---
HE IS WORKING WITH PT. HE HAS A MEPILEX TO HIS COCCYX, HE HAS BIALTERAL WHITE ROLLS OF SKIN, THE SKIN IS INTACT. HE HAS A LEFT HIP INCISION.
[2020-10-17 12:29] VITALS: BP 105/50
--- NOTE | 2020-10-17 18:58 | NUR ---
BEDSIDE REPORT COMPLETE. RECEIVED PT SITTING UP IN BED VISITING WITH . ALERT AND ORIENTED X4. DENIES ANY NEEDS OR PAIN. LEFT HIP INCISION WITH DERMABOND CLOSURE INTACT. NO REDNESS OR WARMTH. BILATERAL HEARING AIDS IN AND EXTRA SET PLUGGED IN BY BED. O2/2L VIA NC PRN. NO DISTRESS NOTED. CALL LIGHT AND HYDRATION WITHIN REACH. STEFANI ALARM ON. CPOC
--- NOTE | 2020-10-17 19:44 | RHP ---
PATIENT: EMMY PENNINGTON MEDICAL RECORD: [id number] ACCOUNT: [id number] LOCATION:[id number] : 38 ADMISSION DATE: 10/08/20 REHABILITATION HISTORY AND PHYSICAL EXAMINATION POST ADMISSION PHYSICIAN EXAMINATION POST ADMISSION PHYSICAL EXAMINATION AND HISTORY AND PHYSICAL ADMITTING DIAGNOSIS: Left total hip arthroplasty. HISTORY OF PRESENT ILLNESS: The patient is admitted to the hospital after a left total hip arthroplasty on 10/06/2020 status post fall on the acute floor, resulting in a nondisplaced fracture of the left femoral neck. They are getting ready for him to come to rehab after being accepted for cardiac impairment with AFib with rapid ventricular response. He is an 80-year-old gentleman who presented to the Emergency Room initially because of cardiac-type symptomatology. He reported he drank a gallon of whiskey over the previous 48 hours to stop the ringing in his ears. He has also had a history of increased alcohol consumption in the past. He denies ever having withdrawals before. He was discharged actually home initially on 09/26/2020 and returned to the ED on 10/02/2020 with increased weakness. He could not complete his ADLs. He had a mild headache, dehydration. He was seen by cardiology. He was a high risk for DTs and placed on appropriate prophylaxis. The patient has had fall precautions. He has had hospitalizations over the previous 2-3 weeks. 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 He has mid to mod assist for ADLs and requiring a rolling walker and mod assist to ambulate 100 feet. He required intensive therapy to get back to his prior level of functioning. We are also watching for any changes in cognition, DTs, medication adjustment, decreased activity tolerance, decreased strength, balance deficits, gait disturbance, impaired mobility, dyspnea on exertion, he has got high fall risk and self-care deficits. These are all barriers to his discharge home. COMORBIDITIES: Include atrial fib, alcohol abuse, BPH, dehydration, gastroesophageal reflux disease, hypertension, weakness, and hypothyroidism. PAST MEDICAL HISTORY: Significant for hypertension, AFib, gastroesophageal reflux disease, BPH, chronic tenderness, alcohol dependence, hypothyroidism. PAST SURGICAL HISTORY: Includes appendectomy. ALLERGIES: CODEINE. CURRENT MEDICATIONS: He is on Floranex one cap daily. He is on a multivitamin daily, Zestril 2.5 mg daily, finasteride 5 mg daily, citalopram 10 mg daily, amiodarone 200 mg daily, Protonix 40 mg daily, Mucinex 1200 mg b.i.d., doxycycline 100 mg b.i.d., Omnicef 300 mg b.i.d., Tessalon Perles 100 mg t.i.d. p.r.n., Eliquis 2.5 mg b.i.d., and Tramadol 50 mg q.6 hours p.r.n. HABITS: Does have a history of alcohol or tobacco use. FAMILY HISTORY: Noncontributory. SOCIAL HISTORY: The patient hopes to return back home and get back to his prior level of functioning. HISTORY AND PHYSICAL [id number] EMMY PENNINGTON REVIEW OF SYSTEMS: GENERAL: He does complain of weakness and fatigue. HEENT: Denies cold, cough, or congestion. CARDIOVASCULAR: Denies any chest pain. PHYSICAL EXAMINATION: VITAL SIGNS: Stable, afebrile. GENERAL: An elderly gentleman, in no acute distress upon exam. HEENT: Normocephalic and atraumatic. Mucosa moist. NECK: Supple. No lymphadenopathy. LUNGS: Clear in upper burns. No wheezes or rales. HEART: An irregular rate and rhythm. ABDOMEN: Soft, benign, nondistended. Positive bowel sounds times 4. EXTREMITIES: No clubbing, cyanosis or edema. Postoperative area looks pretty good. NEUROLOGIC: He is a little slow to mentate and has weakness. LABORATORY DATA: White count is 10,000, H&H 14 and 41, and platelet count is 383. His sodium is 133, potassium 4.2, BUN and creatinine of 14 and 1.01, and blood sugars noted to be 107. His admit UA was negative for nitrites. He does have a trace leukocyte esterase. ASSESSMENT: This is an 80-year-old gentleman admitted to the rehab with a working diagnosis of left total hip replacement. The patient has potential to make improvement. We instituted the following multidisciplinary therapies including, not limited to physical, occupational, respiratory, speech, nutritional services, prosthetics and orthotics. Given his complex medical condition and risks for more complications, rehabilitation services cannot be provided at a low level of care such as half-way facility. PLAN: 1. Admit to [facility] for inpatient therapy to include the following disciplines; A. Physical therapy to improve gait, all transfer skills and bed mobility to a modified independent level. B. Occupational therapy to improve activities of daily living. C. Case management to help with discharge planning and placement options. D. Nutrition to assist with nutritional needs. E. Rehabilitation nursing to assist in monitoring the patient's underlying medical conditions and to assist with any type of bowel or bladder management. 2. The patient's current medication and medical care will be continued. 3. Placed on standard fall precautions. 4. We will continue home medications where appropriate. 5. We will watch for any signs of DT during his stay. I will continue his Eliquis for DVT prophylaxis and also secondary to his AFib and I will see him again in the a.m. We will discuss his case today at noon with the care team and the case management director. TRANSINT:[id number] Voice Confirmation ID: [id number] DOCUMENT ID: [id number] ARTURO notes whether there has been none or any medical/functional change since admission: - No change since preadmission screen. HISTORY AND PHYSICAL [id number] EMMY PENNINGTON attests patient continues to be appropriate for IRF: - Continues to be appropriate. MARILYN MADDOX MD at 1944 CC: [id number] DICTATION DATE: 10/09/20 0837 PROGRAMMING INSTRUCTOR: 10/09/20 1523 ADM IN [facility] [address] [place] [address]
[2020-10-17 19:57] VITALS: BP 108/54
--- NOTE | 2020-10-18 00:12 | NUR ---
PT LYING IN BED ON LEFT SIDE EYES CLOSED RESTING. RR EVEN AND UNLABORED. CALL LIGHT WITHIN REACH. STEFANI ALARM ON
--- NOTE | 2020-10-18 01:52 | NUR ---
RESTING WITH EYES CLOES, CALL LIGHT WITHIN REACH
--- NOTE | 2020-10-18 04:35 | NUR ---
assisted to bathroom and back to bed with min assist using wheelchair. call light within reach. denies further needs
[2020-10-18 07:10] LABS: CALC OSMOLALITY 267 mosm/kg (275-300); CALCIUM 9.2 mg/dL (8.5-10.1); CARBON DIOXIDE 30.2 mmol/L (21.0-32.0); CHLORIDE - SERUM 98 mmol/L (98-107); GLUCOSE 109 mg/dL (74-106); POTASSIUM - SERUM 4.3 mmol/L (3.5-5.1); SODIUM 132 mmol/L (136-145); UREA NITROGEN 19 mg/dL (7-18); eGFR NON AFRICAN AMERICAN 76 mL/min (90-120)
[2020-10-18 07:19] LABS: BASOPHILS 0.9 % (0-2); EOSINOPHILS 3.6 % (0-7); HEMATOCRIT 34.8 % (42.0-54.0); HEMOGLOBIN 11.9 g/dL (13.5-17.5); LYMPHOCYTES 15.3 % (15-50); MCH 31.5 pg (26.0-34.0); MCHC 34.3 g/dL (31.0-37.0); MCV 91.9 fL (80.0-100.0); MONOCYTES 11.3 % (2-11); NEUTROPHILS 68.9 % (40-80); PLATELET COUNT 434 10x3/uL (130-400); RBC 3.78 10x6/uL (4.20-6.10); RDW 13.7 % (11.5-14.5); WBC 9.3 10x3/uL (4.8-10.8)
--- NOTE | 2020-10-18 08:12 | NUR ---
HE IS SETTING UP IN THE CHAIR FOR BREAKFAST. HE HAS THE GLUED DRESSING ON THE LEFT HIP. HE HAS THE MEPILEX ON HIS COCCYX. THE CALL LIGHT IS WITHIN REACH AND THE BED ALARM IS ON.
[2020-10-18 08:57] VITALS: BP 96/46
--- NOTE | 2020-10-18 19:30 | NUR ---
AWAKE AND ALERT. RESTING IN BED WITH RESPIRATIONS UNLABORED. NO ACUTE DISTRESS NOTED. CALL LIGHT IN REACH.
[2020-10-18 20:07] VITALS: BP 117/54
--- NOTE | 2020-10-19 05:21 | NUR ---
QUIET HOURS. NO ACUTE CHANGES IN CONDITION THIS SHIFT. RESTING IN BED WITH NO DISTRESS NOTED.
[2020-10-19 07:00] VITALS: BP 106/58
--- NOTE | 2020-10-19 15:23 | NUR ---
RESTING QUIETLY IN BED. NO S/S DISTRESS. CALL LIGHT IN REACH. HEAD OF BED ELEVATED
[2020-10-19 19:00] VITALS: BP 130/61
--- NOTE | 2020-10-19 19:44 | NUR ---
UP TO BATHROOM, NO DISTRESS NOTED, [place], CONT TO MONITOR PAIN
--- NOTE | 2020-10-20 01:00 | NUR ---
INCONT STOOL EARLIER IN SHIFT, REFUSED MOM AND DULCOLAX, CONT TO MONITOR
[2020-10-20 07:00] VITALS: BP 112/57
--- NOTE | 2020-10-20 09:08 | NUR ---
SITTING UP IN BED FINISHING BREAKFAST. DENIES INCREASED PAIN TO LEFT HIP. HIP AREA IS OPEN TO AIR. IT HAS DURABOND COVERING INCISION. LLE HAS 2+ EDEMA NOTED. ENCOURAGED HIM TO STAY OFF BUTTOCKS WHILE IN BED AND LAY ON SIDE. HE IS VERY [place] AND WEARS BILAT HEARING AIDS. CALL LIGHT IN REACH. BED IN LOWEST POSITION SIDE RAILS UP X2.
--- NOTE | 2020-10-20 20:06 | NUR ---
RESTING IN BED, NO DISTRESS NOTED, DENIES PAIN, CONT TO MONITOR, WILL PROVIDE SLEEPING MED TODAY
[2020-10-20 21:13] VITALS: BP 124/69
[2020-10-21 06:05] LABS: CALC OSMOLALITY 270 mosm/kg (275-300); CALCIUM 9.4 mg/dL (8.5-10.1); CHLORIDE - SERUM 101 mmol/L (98-107); GLUCOSE 104 mg/dL (74-106); POTASSIUM - SERUM 4.7 mmol/L (3.5-5.1); SODIUM 135 mmol/L (136-145); UREA NITROGEN 15 mg/dL (7-18); eGFR NON AFRICAN AMERICAN 76 mL/min (90-120)
[2020-10-21 06:06] LABS: EOSINOPHILS 3.5 % (0-7); HEMATOCRIT 37.4 % (42.0-54.0); HEMOGLOBIN 12.6 g/dL (13.5-17.5); MCH 31.1 pg (26.0-34.0); MCHC 33.7 g/dL (31.0-37.0); MCV 92.5 fL (80.0-100.0); MEAN PLATELET VOLUME 7.1 fL (7.4-10.4); MONOCYTES 8.6 % (2-11); NEUTROPHILS 69.9 % (40-80); PLATELET COUNT 404 10x3/uL (130-400); RBC 4.04 10x6/uL (4.20-6.10); RDW 14.3 % (11.5-14.5); WBC 9.7 10x3/uL (4.8-10.8)
[2020-10-21 07:26] VITALS: BP 99/65
--- NOTE | 2020-10-21 10:07 | NUR ---
RESTING IN BED QUIETLY. MOD ASST TO TRANSFER. DOES MOST OF THE EFFORT HIMSELF. USES A URINAL TO VOID. LEFT HIP INCISION HAS NO S/S INFECTION AND IS OPEN TO AIR. DURA MALHOTRA COVERS INCISION. CALL LIGHT IN REACH
--- NOTE | 2020-10-21 11:08 | NUR ---
PATIENT DISCHARGING HOME WITH FAMILY. [facility] WILL PROVIDE THERAPY AT HOME. DAVID SIGNED, IMM SERVED AND EXPLAINED ONE GIVEN TO PATIENT AND ONE FILED IN CHART. NO NEW DME NEEDED AT THIS TIME. DR. BARR 10/28/20 @ 11:00, DR. LINTON 10/31/20 @ 10:00. COMPARE DATA REVIEWED PATIENT VOICED UNDERSTANDING. DISCHARGING INTRUCTIONS FAXED TO PCP, HOME HEALTH AND REVIEWED WITH PATIENT. PATIENT IS DISCHARGING IN AM 10/22/20, WILL CONTINUE TO FOLLOW WITH PATIENT UNTIL DISCHARGED.
--- NOTE | 2020-10-21 20:07 | NUR ---
AWAKE AND ALERT. RESTING IN BED WITH RESPIRATIONS UNLABORED. NO DISTRESS NOTED. CALL LIGHT IN REACH.
[2020-10-21 20:30] VITALS: BP 123/58
--- NOTE | 2020-10-22 06:31 | NUR ---
QUEIT HOURS. NO ACUTE CHANGES IN CONDITION THIS SHIFT. RESTING IN BED WITH NO DISTRESS NOTED.
--- NOTE | 2020-10-22 08:00 | NUR ---
SHIFT ASSMT COMPLETED.CL IN REACH.UP IN BED FOR BREAKFAST.PLAN TO DISCHARGE HOME TODAY.
[2020-10-22 08:40] VITALS: BP 105/56
[2020-10-22] MEDS ORDERED: ELIQUIS2.5 MG PO (09:42)
[2020-10-22] MEDS ORDERED: HYDROCODON-ACE1 EA10 PO (09:43)
--- NOTE | 2020-10-22 12:15 | NUR ---
REVIEWED MEDS,F/P APPTS AND RX.WITH HOME CARE INSTRUCTIONS WITH PT AND SISTER.DISCHARGED IN STABLE CONDITION.
== END 2020-10-22 12:15 | disposition home health service (06) | DRG 560 ==
LOC: D.REHAB 12:56
PROVIDERS: ADMIT Emergency Medicine; ATTEND Emergency Medicine
DX: S72.002D Fracture of unspecified part of neck of left femur, subsequent encounter for closed fracture with routine healing (principal); E87.1 Hypo-osmolality and hyponatremia; W19.XXXD Unspecified fall, subsequent encounter; Z47.1 Aftercare following joint replacement surgery; Z96.642 Presence of left artificial hip joint; I48.91 Unspecified atrial fibrillation; F10.10 Alcohol abuse, uncomplicated; N40.0 Benign prostatic hyperplasia without lower urinary tract symptoms; E86.0 Dehydration; K21.9 Gastro-esophageal reflux disease without esophagitis; I10 Essential (primary) hypertension; E03.9 Hypothyroidism, unspecified; R53.1 Weakness